=== PATIENT | male | born 1960 | race American Indian/Alaskan Native ===

== ENCOUNTER 2018-08-21 23:49 | Observation (INO) | payer MEDICARE ==
[2018-08-22] MEDS ORDERED: ASPIRIN PO ONE (00:04)
[2018-08-22] MEDS ORDERED: CATAPRES ONE (00:12)
[2018-08-22] MEDS ORDERED: CATAPRES PO ONE (00:20)
[2018-08-22 00:27] LABS: Basophils % (Auto) 0.5 % (0.0-1.8); Eosinophils # (Auto) 0.1 K/mm3 (0.0-0.4); Eosinophils % (Auto) 1.3 % (0.0-4.3); Hematocrit 41.5 % (35.5-45.6); Hemoglobin 13.9 gm/dl (11.8-15.2); Lymphocytes # (Auto) 1.2 K/mm3 (1.2-5.4); Lymphocytes % (Auto) 17.3 % (13.4-35.0); Mean Corpuscular HGB Conc 34 % (32-34); Mean Corpuscular Volume 86 fl (84-94); Monocytes # (Auto) 0.6 K/mm3 (0.0-0.8); Monocytes % (Auto) 9.2 % (0.0-7.3); Platelet Count 188 K/mm3 (140-440); Red Blood Count 4.83 M/mm3 (3.65-5.03); Red Cell Distribution Width 13.8 % (13.2-15.2)
[2018-08-22] MEDS ORDERED: MORPHINE IV ONE (00:33)
--- NOTE | 2018-08-22 00:35 | XRay Report ---
PROCEDURE: XR CHEST 1V AP TECHNIQUE: Chest radiograph single view. HISTORY: Chest Pain COMPARISONS: None . FINDINGS: Heart: Normal. Mediastinum/Vessels: Normal. Lungs/Pleural space: Normal. Bony thorax: No acute osseous abnormality. Life support devices: None. IMPRESSION: No acute cardiopulmonary abnormality. This document is electronically signed by Torsten Martinez MD., August 22 2018 12:33:27 AM ET
--- NOTE | 2018-08-22 00:35 | Emergency Department Report ---
ED Chest Pain HPI - General Chief Complaint: Chest Pain Stated Complaint: CHEST PAIN Time Seen by Provider: 08/22/18 00:31 Source: patient Mode of arrival: Ambulatory Limitations: No Limitations - History of Present Illness Initial Comments: Patient is a 57-year-old male that presents to emergency room with complaints of chest pain. Patient states chest pain is the left side and nonradiating. Patient states it started approximately one hour ago. Patient is states he is having shortness of breath as well. Patient also complaining of nausea. The patient denies vomiting and fever chills. Patient denies diaphoresis. Patient states his chest pain is a 10 out of 10 and is worse with exertion and better with rest. Patient states shortness of breath better with rest and worse with exertion. Patient states he stopped taking his blood pressure medications 2 weeks ago. MD Complaint: chest pain -: Sudden Onset: during rest Severity: severe Severity scale (0 -10): 10 Quality: sharp Consistency: constant Improves With: rest Worsens With: exertion re: nausea, dyspnea. denies: vomting, diaphoresis, sense of impending doom Other Symptoms: denies: cough, fever, syncope, rash, acid taste in mouth, leg swelling, palpitations, burping Treatments Prior to Arrival: none Aspirin use within the Past 7 Days: (0) No - Related Data On Oral Contraceptives: No Home Medications Medication Instructions Recorded Confirmed Last Taken Metoprolol [Lopressor] 25 mg PO BID 03/28/15 03/28/15 Unknown Previous Rx's Medication Instructions Recorded Last Taken Type Amoxicillin/K Clav Tab [Augmentin 1 each PO Q12HR #20 tablet 03/30/15 Unknown Rx 875MG TAB] Lisinopril [Zestril TAB] 20 mg PO BID #60 tablet 03/30/15 Unknown Rx Metoprolol [Lopressor TAB] 50 mg PO BID #60 tablet 03/30/15 Unknown Rx Sod Chloride/Aloe Vera [[place] Sal[place]] 1 applic NS BID #1 bottle 03/30/15 Unknown Rx Zinc Oxide 7 applic TP QHS #1 tube 03/30/15 Unknown Rx amLODIPine [Norvasc] 10 mg PO DAILY #30 tablet 03/30/15 Unknown Rx hydrALAZINE [Apresoline TAB] 25 mg PO Q8HR #90 tablet 03/30/15 Unknown Rx hydrALAZINE [Apresoline TAB] 50 mg PO Q8HR #90 tablet 03/31/15 Unknown Rx Allergies Allergy/AdvReac Type Severity Reaction Status Date / Time No Known Allergies Allergy Verified 04/08/13 09:28 Heart Score - HEART Score History: Moderately suspicious EKG: Non-specific Age: 45-65 Risk factors: > 3 risk factors or hx of atherosclerotic disease Troponin: < normal limit HEART Score: 5 ED Review of Systems ROS: Stated complaint: CHEST PAIN Other details as noted in HPI Constitutional: denies: chills, fever Eyes: denies: eye pain, eye discharge, vision change ENT: denies: ear pain, throat pain Respiratory: shortness of breath. denies: cough, wheezing Cardiovascular: chest pain, dyspnea on exertion. denies: palpitations Endocrine: no symptoms reported Gastrointestinal: nausea. 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) Hx Congestive Heart Failure: No Hx Diabetes: No Hx Psychiatric Treatment: No Hx Asthma: No Hx COPD: No Hx HIV: No Additional medical history: chronic back pain - Surgical History Past Surgical History?: Yes Hx Internal Defibrillator: No Hx Appendectomy: Yes - Family History Family history: hypertension - Social History Smoking Status: Never Smoker Substance Use Type: Alcohol - Medications Home Medications: Home Medications Medication Instructions Recorded Confirmed Last Taken Type Metoprolol [Lopressor] 25 mg PO BID 03/28/15 03/28/15 Unknown History Amoxicillin/K Clav Tab [Augmentin 1 each PO Q12HR #20 tablet 03/30/15 Unknown Rx 875MG TAB] Lisinopril [Zestril TAB] 20 mg PO BID #60 tablet 03/30/15 Unknown Rx Metoprolol [Lopressor TAB] 50 mg PO BID #60 tablet 03/30/15 Unknown Rx Sod Chloride/Aloe Vera [[place] Sal[place]] 1 applic NS BID #1 bottle 03/30/15 Unknown Rx Zinc Oxide 7 applic TP QHS #1 tube 03/30/15 Unknown Rx amLODIPine [Norvasc] 10 mg PO DAILY #30 tablet 03/30/15 Unknown Rx hydrALAZINE [Apresoline TAB] 25 mg PO Q8HR #90 tablet 03/30/15 Unknown Rx hydrALAZINE [Apresoline TAB] 50 mg PO Q8HR #90 tablet 03/31/15 Unknown Rx ED Physical Exam - General Limitations: No Limitations General appearance: alert, in no apparent distress - Head Head exam: Present: atraumatic, normocephalic - Eye Eye exam: Present: normal appearance - ENT ENT exam: Present: mucous membranes moist - Neck Neck exam: Present: normal inspection - Respiratory Respiratory exam: Present: normal lung sounds bilaterally. Absent: respiratory distress - Cardiovascular Cardiovascular Exam: Present: regular rate, normal rhythm. Absent: systolic murmur, diastolic murmur, rubs, gallop - GI/Abdominal GI/Abdominal exam: Present: soft, normal bowel sounds - Rectal Rectal exam: Present: deferred - Extremities Exam Extremities exam: Present: normal inspection - Back Exam Back exam: Present: normal inspection - Neurological Exam Neurological exam: Present: alert, oriented X3 - Psychiatric Psychiatric exam: Present: normal affect, normal mood - Skin Skin exam: Present: warm, dry, intact, normal color. Absent: rash ED Course Vital Signs 08/21/18 08/22/18 08/22/18 23:50 00:00 00:25 Temperature 98.1 F Pulse Rate 77 81 Respiratory 18 20 Rate Blood Pressure 185/120 185/120 O2 Sat by Pulse 99 Oximetry 08/22/18 08/22/18 08/22/18 00:28 00:30 00:45 Temperature Pulse Rate 79 79 Respiratory 20 18 Rate Blood Pressure 186/115 O2 Sat by Pulse 98 98 100 Oximetry 08/22/18 01:00 Temperature Pulse Rate 73 Respiratory 24 Rate Blood Pressure O2 Sat by Pulse 100 Oximetry - Reevaluation(s) Reevaluation #1: Initial evaluation done. Patient will be given morphine and aspirin. Patient was given clonidine. Patient still having elevated blood pressure. We will continue to monitor. 08/22/18 00:43 Patient still having elevated blood pressure and patient was given another round of medications. 08/22/18 01:03 Patient states this chest pain is improving however the blood pressure still elevated at 195/122. Patient will be given 5 mg of Lopressor. 08/22/18 01:42 Reevaluation #2: Discussed all results with patient. Patient will be admitted to the hospitalist service. Patient agrees to plan of care. After Lopressor given, the blood pressure came to 170/99. 08/22/18 01:54 - Consultations Consultation #1: Hospitalist consulted for admission. Hospitalist to admit patient. Hospitalist to assume care patient. 08/22/18 01:54 CASSIE score - Cassie Score Age > 65: (0) No Aspirin use within the Past 7 Days: (0) No 3 or more CAD Risk Factors: (1) Yes 2 or more Angina events in past 24 hrs: (0) No Known CAD with more than 50% Stenosis: (0) No Elevated Cardiac Markers: (0) No ST Deviation Greater than 0.5mm: (0) No CASSIE Score: 1 ED Medical Decision Making - Lab Data Result diagrams: 08/22/18 00:08 08/22/18 00:08 - EKG Data -: EKG Interpreted by Me EKG shows normal: sinus rhythm, intervals, ST-T waves Rate: normal - EKG Data Interpretation: other (right bundle-branch block. Left axis deviation) - Radiology Data Radiology results: report reviewed, image reviewed interpreted by me: No acute finding on chest x-ray. - Medical Decision Making Patient is a 57-year-old male that presents emergency room with chest pain, shortness of breath and resistant hypertension. Patient recently stopped taking his blood pressure medications. Patient's blood pressure difficult to control and improved. Patient given multiple medications. Patient's labs unremarkable. Patient's cardiac workup so far negative. Patient was admitted to the hospital service. - Differential Diagnosis chest pain. ACS. Shortness of breath. Hypertension Critical Care Time: Yes Critical care attestation.: If time is entered above; I have spent that time in minutes in the direct care of this critically ill patient, excluding procedure time. Critical Care Time: 35 minutes ED Disposition Clinical Impression: Hypertension, uncontrolled, Malignant hypertension, SOB (shortness of breath), Noncompliance Chest pain Qualifiers: Chest pain type: unspecified Qualified Code(s): R07.9 - Chest pain, unspecified Disposition: OP ADMIT IP TO THIS HOSP Is pt being admited?: Yes Does the pt Need Aspirin: No Condition: Critical Time of Disposition: 01:54
[2018-08-22] MEDS ORDERED: APRESOLINE IV ONE (01:19)
[2018-08-22 01:40] LABS: BUN/Creatinine Ratio 15; Blood Urea Nitrogen 16 mg/dL (9-20); Calcium 9.8 mg/dL (8.4-10.2); Hemolysis Index 12
[2018-08-22] MEDS ORDERED: LOPRESSOR IV ONE (01:42)
[2018-08-22] MEDS ORDERED: ZOFRAN IV PRN (01:59)
[2018-08-22] MEDS ORDERED: PROVENTIL IH PRN (01:59)
[2018-08-22] MEDS ORDERED: TYLENOL PO PRN (01:59)
[2018-08-22] MEDS ORDERED: SODIUM CHLORIDE FLUSH SYRINGE 10 ML IV PRN ×2 (01:59→02:03)
[2018-08-22] MEDS ORDERED: MORPHINE IV PRN (01:59)
[2018-08-22] MEDS ORDERED: NITROSTAT SL PRN (02:03)
[2018-08-22] MEDS ORDERED: APRESOLINE IV PRN (02:06)
--- NOTE | 2018-08-22 02:50 | History and Physical Report ---
<NOEL MAGALLANES - Last Filed: 08/22/18 03:04> History of Present Illness Date of examination: 08/22/18 Date of admission: 08/22/2018 Chief complaint: Chest pain History of present illness: 57-year-old -[place] male with history of CVAx 2 (2001 with left sided weakness, and 01/2008 with right sised weakness) and hypertension who presents to [facility] ED with complaints of left-sided chest pain. He states that around 11 PM last night he started experience left-sided chest pain. The pain is nonradiating. He describes pain as pressure and rates it 10/10. There are no aggravating factors and it has relieved with pain medicine. Patient admits to being noncompliant with antihypertensive medication. He states that he has not taken his blood pressure medicine since moving back to [place] from [place] 2 months ago. 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 He is advised to follow-up in 4 months but admits to not doing so. Denies vomiting, cough, hemoptysis, visual disturbances, gait abnormalities, fever, recent sick contact Past History Past Medical History: hypertension, stroke (2001, w residual L/-sided weakness; 01/2018 w R sided weakness, chronic back pain), other (cancer of Lt groin lymph node s/p chemotherapy, radiation) Past Surgical History: Other (removal lymph node in lt groin) Social history: (but ), lives with family (with her brother), other (social drinker) Family history: no significant family history Medications and Allergies Allergies Allergy/AdvReac Type Severity Reaction Status Date / Time No Known Allergies Allergy Verified 04/08/13 09:28 Home Medications Medication Instructions Recorded Confirmed Last Taken Type Aspirin [Aspirin BABY CHEW TAB] 81 mg PO QDAY #30 tab.chew 08/23/18 Unknown Rx AtorvaSTATin [Lipitor] 40 mg PO QHS #30 tablet 08/23/18 Unknown Rx Lisinopril [Zestril TAB] 40 mg PO DAILY #60 tablet 08/23/18 Unknown Rx Metoprolol [Lopressor TAB] 50 mg PO BID #60 tablet 08/23/18 Unknown Rx amLODIPine [Norvasc] 10 mg PO DAILY #30 tablet 08/23/18 Unknown Rx hydrALAZINE [Apresoline TAB] 50 mg PO Q8HR #90 tablet 08/23/18 Unknown Rx Active Meds: Active Medications Acetaminophen (Tylenol) 650 mg PO Q4H PRN PRN Reason: Pain MILD(1-3)/Fever >100.5/ZAMORA Albuterol (Proventil) 2.5 mg IH Q4HRT PRN PRN Reason: Shortness Of Breath Amlodipine Besylate (Norvasc) 10 mg PO DAILY YARI Aspirin (Baby Aspirin) 81 mg PO QDAY YARI Atorvastatin Calcium (Lipitor) 40 mg PO QHS YARI Enoxaparin Sodium (Lovenox) 40 mg SUB-Q QDAY YARI Hydralazine HCl (Apresoline) 10 mg IV Q4HR PRN PRN Reason: Blood Pressure Hydralazine HCl (Apresoline) 25 mg PO Q8HR YARI Lisinopril (Zestril) 20 mg PO BID YARI Morphine Sulfate (Morphine) 2 mg IV Q4H PRN PRN Reason: Pain, Moderate (4-6) Stop: 08/23/18 23:59 Nitroglycerin (Nitrostat) 0.4 mg SL Q5M PRN PRN Reason: Chest Pain Ondansetron HCl (Zofran) 4 mg IV Q8H PRN PRN Reason: Nausea And Vomiting Sodium Chloride (Sodium Chloride Flush Syringe 10 Ml) 10 ml IV BID YARI Sodium Chloride (Sodium Chloride Flush Syringe 10 Ml) 10 ml IV PRN PRN PRN Reason: LINE FLUSH Review of Systems All systems: negative (reviewed in no additional remarkable complaints except as noted below) Cardiovascular: chest pain, shortness of breath, dyspnea on exertion Respiratory: shortness of breath, dyspnea on exertion Gastrointestinal: nausea Neurological: headaches (mild headache accompanied with chest pain) Exam - Physical Exam Narrative exam: Physical exam General appearance: Present: No acute distress, pleasant, middle age until mail - EENT Eyes: Present: PERRL, EOM intact ENT: hearing intact, normal dentition - Neck Neck: Present: supple, normal ROM - Respiratory Respiratory effort: Non-labored Respiratory: Clear throughout - Cardiovascular Heart rate: 77 (bpm) Rhythm: Right bundle-branch block, left axis deviation Heart Sounds: Present: S1 & S2. Absent: rub, click - Extremities Extremities: no ischemia, pulses intact, - Peripheral Assessment Peripheral Pulses: within normal limits - Abdominal General gastrointestinal: soft, non-tender, normal bowel sounds - Integumentary Integumentary: Present: warm, dry - Musculoskeletal Musculoskeletal: Able to move all extremities - Psychiatric Psychiatric: Appropriate for situation, cooperative - Constitutional Vitals: Temp Pulse Resp BP Pulse Ox 98.1 F 77 21 163/96 99 08/22/18 00:00 08/22/18 02:00 08/22/18 02:00 08/22/18 02:00 08/22/18 02:00 Results - Labs CBC & Chem 7: 08/22/18 00:08 08/22/18 00:08 Labs: Laboratory Last Values WBC 6.8 K/mm3 (4.5-11.0) 08/22/18 00:08 RBC 4.83 M/mm3 (3.65-5.03) 08/22/18 00:08 Hgb 13.9 gm/dl (11.8-15.2) 08/22/18 00:08 Hct 41.5 % (35.5-45.6) 08/22/18 00:08 MCV 86 fl (84-94) 08/22/18 00:08 MCH 29 pg (28-32) 08/22/18 00:08 MCHC 34 % (32-34) 08/22/18 00:08 RDW 13.8 % (13.2-15.2) 08/22/18 00:08 Plt Count 188 K/mm3 (140-440) 08/22/18 00:08 Lymph % (Auto) 17.3 % (13.4-35.0) 08/22/18 00:08 [place] % (Auto) 9.2 % (0.0-7.3) H 08/22/18 00:08 Eos % (Auto) 1.3 % (0.0-4.3) 08/22/18 00:08 Baso % (Auto) 0.5 % (0.0-1.8) 08/22/18 00:08 Lymph # 1.2 K/mm3 (1.2-5.4) 08/22/18 00:08 [place] # 0.6 K/mm3 (0.0-0.8) 08/22/18 00:08 Eos # 0.1 K/mm3 (0.0-0.4) 08/22/18 00:08 Baso # 0.0 K/mm3 (0.0-0.1) 08/22/18 00:08 Seg Neutrophils % 71.7 % (40.0-70.0) H 08/22/18 00:08 Seg Neutrophils # 4.9 K/mm3 (1.8-7.7) 08/22/18 00:08 Sodium 140 mmol/L (137-145) 08/22/18 00:08 Potassium 4.3 mmol/L (3.6-5.0) 08/22/18 00:08 Chloride 99.9 mmol/L (98-107) 08/22/18 00:08 Carbon Dioxide 28 mmol/L (22-30) 08/22/18 00:08 16 mmol/L 08/22/18 00:08 BUN 16 mg/dL (9-20) 08/22/18 00:08 1.1 mg/dL (0.8-1.5) 08/22/18 00:08 Estimated GFR > 60 ml/min 08/22/18 00:08 15 % 08/22/18 00:08 Glucose 130 mg/dL (75-100) H 08/22/18 00:08 Calcium 9.8 mg/dL (8.4-10.2) 08/22/18 00:08 < 0.010 ng/mL (0.00-0.029) 08/22/18 00:08 NT-Pro-B Natriuret Pep 57.80 pg/mL (0-900) 08/22/18 00:08 Short CBC 08/22/18 Range/Units 00:08 WBC 6.8 (4.5-11.0) K/mm3 Hgb 13.9 (11.8-15.2) gm/dl Hct 41.5 (35.5-45.6) % Plt Count 188 (140-440) K/mm3 BMP 08/22/18 00:08 Sodium 140 Potassium 4.3 Chloride 99.9 Carbon Dioxide 28 BUN 16 Creatinine 1.1 Glucose 130 H Calcium 9.8 Cardiac Enzymes 08/22/18 Range/Units 00:08 Troponin T < 0.010 (0.00-0.029) ng/mL - Imaging and Cardiology EKG: image reviewed (77 bpm, right complaint fall, left axis deviation) Chest x-ray: report reviewed ( No acute cardiopulmonary abnormality), image reviewed Assessment and Plan Assessment and plan: 57-year-old -[place] male with history of CVAx 2 (2001 with left sided weakness, and 01/2008 with right sised weakness) and hypertension noncompliant with antihypertensive medication who presents to [facility] ED with complaints of left-sided chest pain. He is going to be in hypertensive urgency with blood pressure 197/122. Troponin negative 1. CXR unremarkable. Will admit as OBS to Telemetry unit for further evaluation. Acute chest pain R/O ACS Hypertensive emergency HTN Hx of CA in Left groin lymph node Plan: Continue supportive care Continuous telemetry monitoring Monitor BP Resume Norvasc 10 mg daily, hydralazine 20 mg daily, lisinopril 20 mg twice a day IV hydralazine when necessary ASA 81mg, Lipitor 40 mg daily at bedtime Cardiology consult Nothing by mouth Lexiscan and echo pending Repeat troponin pending DVT PPX on Lovenox and SCD This pt has been seen in conjunction with Dr. Taylor. Advance Directives: No VTE prophylaxis?: Chemical Plan of care discussed with patient/family: Yes <JG TAYLOR E - Last Filed: 08/23/18 22:55> History of Present Illness Date of admission: 08/22/18 01:59 Medications and Allergies Active Meds: Active Medications Acetaminophen (Tylenol) 650 mg PO Q4H PRN PRN Reason: Pain MILD(1-3)/Fever >100.5/ZAMORA Albuterol (Proventil) 2.5 mg IH Q4HRT PRN PRN Reason: Shortness Of Breath Amlodipine Besylate (Norvasc) 10 mg PO DAILY [facility] Aspirin (Baby Aspirin) 81 mg PO QDAY [facility] Atorvastatin Calcium (Lipitor) 40 mg PO QHS [facility] Enoxaparin Sodium (Lovenox) 40 mg SUB-Q QDAY [facility] Hydralazine HCl (Apresoline) 10 mg IV Q4HR PRN PRN Reason: Blood Pressure Hydralazine HCl (Apresoline) 25 mg PO Q8HR [facility] Lisinopril (Zestril) 20 mg PO BID [facility] Last Admin: 08/22/18 03:02 Dose: 20 mg Documented by: Morphine Sulfate (Morphine) 2 mg IV Q4H PRN PRN Reason: Pain, Moderate (4-6) Stop: 08/23/18 23:59 Nitroglycerin (Nitrostat) 0.4 mg SL Q5M PRN PRN Reason: Chest Pain Ondansetron HCl (Zofran) 4 mg IV Q8H PRN PRN Reason: Nausea And Vomiting Sodium Chloride (Sodium Chloride Flush Syringe 10 Ml) 10 ml IV BID YARI Sodium Chloride (Sodium Chloride Flush Syringe 10 Ml) 10 ml IV PRN PRN PRN Reason: LINE FLUSH Exam - Constitutional Vitals: Temp Pulse Resp BP Pulse Ox 98.4 F 75 18 160/100 99 08/22/18 05:02 08/22/18 05:02 08/22/18 05:02 08/22/18 05:02 08/22/18 05:02 Results - Labs CBC & Chem 7: 08/23/18 04:02 08/23/18 04:02 Labs: Laboratory Last Values WBC 6.8 K/mm3 (4.5-11.0) 08/22/18 00:08 RBC 4.83 M/mm3 (3.65-5.03) 08/22/18 00:08 Hgb 13.9 gm/dl (11.8-15.2) 08/22/18 00:08 Hct 41.5 % (35.5-45.6) 08/22/18 00:08 MCV 86 fl (84-94) 08/22/18 00:08 MCH 29 pg (28-32) 08/22/18 00:08 MCHC 34 % (32-34) 08/22/18 00:08 RDW 13.8 % (13.2-15.2) 08/22/18 00:08 Plt Count 188 K/mm3 (140-440) 08/22/18 00:08 Lymph % (Auto) 17.3 % (13.4-35.0) 08/22/18 00:08 [place] % (Auto) 9.2 % (0.0-7.3) H 08/22/18 00:08 Eos % (Auto) 1.3 % (0.0-4.3) 08/22/18 00:08 Baso % (Auto) 0.5 % (0.0-1.8) 08/22/18 00:08 Lymph # 1.2 K/mm3 (1.2-5.4) 08/22/18 00:08 [place] # 0.6 K/mm3 (0.0-0.8) 08/22/18 00:08 Eos # 0.1 K/mm3 (0.0-0.4) 08/22/18 00:08 Baso # 0.0 K/mm3 (0.0-0.1) 08/22/18 00:08 Seg Neutrophils % 71.7 % (40.0-70.0) H 08/22/18 00:08 Seg Neutrophils # 4.9 K/mm3 (1.8-7.7) 08/22/18 00:08 Sodium 140 mmol/L (137-145) 08/22/18 00:08 Potassium 4.3 mmol/L (3.6-5.0) 08/22/18 00:08 Chloride 99.9 mmol/L (98-107) 08/22/18 00:08 Carbon Dioxide 28 mmol/L (22-30) 08/22/18 00:08 16 mmol/L 08/22/18 00:08 BUN 16 mg/dL (9-20) 08/22/18 00:08 1.1 mg/dL (0.8-1.5) 08/22/18 00:08 Estimated GFR > 60 ml/min 08/22/18 00:08 15 % 08/22/18 00:08 Glucose 130 mg/dL (75-100) H 08/22/18 00:08 5.4 % (4-6) 08/22/18 02:47 Calcium 9.8 mg/dL (8.4-10.2) 08/22/18 00:08 < 0.010 ng/mL (0.00-0.029) 08/22/18 02:47 NT-Pro-B Natriuret Pep 57.80 pg/mL (0-900) 08/22/18 00:08 Triglycerides 77 mg/dL (2-149) 08/22/18 02:47 Cholesterol 255 mg/dL (50-199) H 08/22/18 02:47 181 mg/dL (50-130) H 08/22/18 02:47 82 mg/dL (40-59) H 08/22/18 02:47 3.10 % 08/22/18 02:47 Assessment and Plan Assessment and plan: 57-year-old man with history of hypertension, noncompliant with medications, CVA, cancer of left groin lymph node come to the emergency room with chest pain that tarted yesterday, sharp, constant, associated with nausea and shortness of breath. Physical exam benign, Agree with plan as discussed above.Patient seen, discussed with [employer] INVESTIGATOR.
[2018-08-22] MEDS ORDERED: ZESTRIL PO SCH (03:00)
[2018-08-22 03:42] LABS: Chol/HDL Ratio 3.1 %
[2018-08-22] MEDS ORDERED: APRESOLINE PO SCH (06:00)
[2018-08-22] MEDS ORDERED: LEXISCAN IV ONE (08:48)
--- NOTE | 2018-08-22 10:16 | Consultation ---
History of Present Illness Consult date: 08/22/18 Consult reason: chest pain History of present illness: He claims that last night, he developed intermittent, sharp, substernal chest pain with no radiation. It was associated with shortness of breath. So far, he has ruled out for acute myocardial infarction with negative cardiac enzymes. His BP was significantly elevated at presentation. 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 denies: alcohol abuse Family history: CAD Medications and Allergies Allergies Allergy/AdvReac Type Severity Reaction Status Date / Time No Known Allergies Allergy Verified 04/08/13 09:28 Home Medications Medication Instructions Recorded Confirmed Last Taken Type Lisinopril [Zestril TAB] 20 mg PO BID #60 tablet 03/30/15 08/22/18 Unknown Rx Metoprolol [Lopressor TAB] 50 mg PO BID #60 tablet 03/30/15 08/22/18 Unknown Rx amLODIPine [Norvasc] 10 mg PO DAILY #30 tablet 03/30/15 08/22/18 Unknown Rx hydrALAZINE [Apresoline TAB] 50 mg PO Q8HR #90 tablet 03/31/15 08/22/18 Unknown Rx Active Meds: Active Medications Acetaminophen (Tylenol) 650 mg PO Q4H PRN PRN Reason: Pain MILD(1-3)/Fever >100.5/ZAMORA Albuterol (Proventil) 2.5 mg IH Q4HRT PRN PRN Reason: Shortness Of Breath Amlodipine Besylate (Norvasc) 10 mg PO DAILY [facility] Aspirin (Baby Aspirin) 81 mg PO QDAY YARI Atorvastatin Calcium (Lipitor) 40 mg PO QHS [facility] Enoxaparin Sodium (Lovenox) 40 mg SUB-Q QDAY YARI Hydralazine HCl (Apresoline) 10 mg IV Q4HR PRN PRN Reason: Blood Pressure Last Admin: 08/22/18 06:57 Dose: 10 mg Documented by: Lisinopril (Zestril) 40 mg PO DAILY [facility] Metoprolol Tartrate (Lopressor) 50 mg PO BID [facility] Morphine Sulfate (Morphine) 2 mg IV Q4H PRN PRN Reason: Pain, Moderate (4-6) Stop: 08/23/18 23:59 Nitroglycerin (Nitrostat) 0.4 mg SL Q5M PRN PRN Reason: Chest Pain Ondansetron HCl (Zofran) 4 mg IV Q8H PRN PRN Reason: Nausea And Vomiting Sodium Chloride (Sodium Chloride Flush Syringe 10 Ml) 10 ml IV BID YARI Sodium Chloride (Sodium Chloride Flush Syringe 10 Ml) 10 ml IV PRN PRN PRN Reason: LINE FLUSH Review of Systems Constitutional: no fever, no chills Ears, nose, mouth and throat: no ear pain, no ear discharge, no sore throat Cardiovascular: chest pain, shortness of breath, no orthopnea, no palpitations, no lightheadedness Respiratory: no cough, no hemoptysis Gastrointestinal: no abdominal pain, no nausea, no vomiting, no diarrhea, no constipation Genitourinary Male: no dysuria, no urinary frequency Rectal: no pain, no bleeding Musculoskeletal: no neck stiffness, no neck pain, no muscle weakness, no myalgias Integumentary: no rash, no pruritis Neurological: no parathesias, no numbness, no headaches Endocrine: no cold intolerance, no heat intolerance Hematologic/Lymphatic: no easy bruising, no easy bleeding Allergic/Immunologic: no urticaria, no wheezing Physical Examination Vital Signs Last Vital Signs Temp 98.1 F 08/22/18 07:58 Pulse 75 08/22/18 06:57 Resp 18 08/22/18 07:58 BP 131/76 08/22/18 08:58 Pulse Ox 99 08/22/18 05:02 General appearance: no acute distress HEENT: Positive: EOMI, Normocephaly, Mucus Membranes Moist Neck: Positive: neck supple, trachea midline Cardiac: Positive: Reg Rate and Rhythm, S1/S2 Lungs: Positive: clear to auscultation Neuro: Positive: Grossly Intact Abdomen: Positive: Soft, Active Bowel Sounds Skin: Positive: Clear. Negative: Rash Musculoskeletal: Normal Range of Motion Extremities: Present: normal. Absent: edema Results 08/22/18 00:08 08/22/18 00:08 Lipids 08/22/18 Range/Units 02:47 Triglycerides 77 (2-149) mg/dL Cholesterol 255 H (50-199) mg/dL HDL Cholesterol 82 H (40-59) mg/dL Cholesterol/HDL Ratio 3.10 % CBC 08/22/18 Range/Units 00:08 WBC 6.8 (4.5-11.0) K/mm3 RBC 4.83 (3.65-5.03) M/mm3 Hgb 13.9 (11.8-15.2) gm/dl Hct 41.5 (35.5-45.6) % Plt Count 188 (140-440) K/mm3 Lymph # 1.2 (1.2-5.4) K/mm3 Bee # 0.6 (0.0-0.8) K/mm3 Eos # 0.1 (0.0-0.4) K/mm3 Baso # 0.0 (0.0-0.1) K/mm3 Comprehensive Metabolic Panel 08/22/18 Range/Units 00:08 Sodium 140 (137-145) mmol/L Potassium 4.3 (3.6-5.0) mmol/L Chloride 99.9 (98-107) mmol/L Carbon Dioxide 28 (22-30) mmol/L BUN 16 (9-20) mg/dL Creatinine 1.1 (0.8-1.5) mg/dL Glucose 130 H (75-100) mg/dL Calcium 9.8 (8.4-10.2) mg/dL - Imaging and Cardiology EKG: image reviewed EKG interpretations - Telemetry EKG Rhythm: Sinus Rhythm - EKG Sinus rhythms and dysrhythmias: sinus rhythm AV and intraventricular conduction: left anterior fascicular Assessment and Plan Optimize antihypertensive regimen. Lipid-lowering medication. Lexiscan stress myocardial perfusion imaging. Obtain echocardiogram. Further recommendations after reviewing stress test findings. - Patient Problems (1) Chest pain Current Visit: Yes Status: Acute Qualifiers: Chest pain type: unspecified Qualified Code(s): R07.9 - Chest pain, unspecified (2) Uncontrolled hypertension Current Visit: Yes Status: Chronic (3) Abnormal ECG Current Visit: Yes Status: Acute (4) HLD (hyperlipidemia) Current Visit: Yes Status: Acute Qualifiers: Hyperlipidemia type: pure hypercholesterolemia Qualified Code(s): E78.00 - Pure hypercholesterolemia, unspecified; E78.0 - Pure hypercholesterolemia (5) H/O lymphoma Current Visit: Yes Status: Chronic
[2018-08-22] MEDS: LOVENOX SUB-Q SCH (11:02)
[2018-08-22] MEDS: LOPRESSOR PO SCH ×2 (11:03→21:12)
[2018-08-22] MEDS: ZESTRIL PO SCH (11:03)
[2018-08-22] MEDS: NORVASC PO SCH (11:03)
[2018-08-22] MEDS: SODIUM CHLORIDE FLUSH SYRINGE 10 ML IV SCH ×2 (11:05→21:13)
--- NOTE | 2018-08-22 15:08 | Event Note ---
Date: 08/22/18 Patient was admitted earlier this morning for the management of hypertensive urgency and chest pain. Stress test was done and normal recommended medical management. Echo is pending. Blood pressure is controlled. Continue management as outlined in H&P.
--- NOTE | 2018-08-22 18:09 | Treadmill Report ---
LEXISCAN STRESS TEST REPORT REASON FOR STUDY: Chest pain. STRESS TEST PROTOCOL: The patient received 0.4 mg of Lexiscan intravenously over 10 seconds. Technetium-99m tetrofosmin was subsequently injected. Baseline ECG, normal sinus rhythm with right bundle branch block. T-wave abnormality. Consider inferior ischemia. Lexiscan ECG, no significant change from baseline. No chest pain. No arrhythmias. IMPRESSION: Nondiagnostic due to baseline ECG abnormalities. Nuclear imaging report to follow. JOB# [id number] AGO/NTS
--- NOTE | 2018-08-23 04:26 | Treadmill Report ---
THALLIUM REPORT REASON FOR STUDY: Chest pain. IMAGING PROTOCOL: The patient received 9.88 mCi of technetium-99m for rest imaging, and 31.21 mCi of technetium-99m Tetrofosmin for stress imaging. Imaging for all procedures was completed 30-90 minutes following the initial injection of Technetium 99m Tetrofosmin. SPECT imaging in the 180 degree arc was performed in the right anterior oblique projection. Computerized reconstruction of the images was performed for analysis. NUCLEAR IMAGING RESULTS: Normal left ventricular cavity size with no change from stress to rest. Distribution of radionuclide within the left ventricle revealed a medium-sized area of photon reduction involving the inferior wall. The degree of photo-induction is moderate. Rest imaging showed a mild improvement in this defect. Gated SPECT imaging revealed normal global LV systolic function with moderate septal hypokinesis. The calculated left ventricular ejection fraction is 56%. IMPRESSION: Medium size, partially reversible inferior defect. Normal global LV systolic function with moderate septal hypokinesis. EF 56%. These findings suggest prior infarction with mild residual ischemia in the right coronary artery territory. [facility]# [id number] YESI/IRMA DELONG
[2018-08-23 06:37] LABS: Basophils % (Auto) 0.7 % (0.0-1.8); Eosinophils # (Auto) 0.1 K/mm3 (0.0-0.4); Eosinophils % (Auto) 2.7 % (0.0-4.3); Hematocrit 39.5 % (35.5-45.6); Hemoglobin 12.9 gm/dl (11.8-15.2); Lymphocytes # (Auto) 0.8 K/mm3 (1.2-5.4); Lymphocytes % (Auto) 17.6 % (13.4-35.0); Mean Corpuscular HGB Conc 33 % (32-34); Mean Corpuscular Volume 87 fl (84-94); Monocytes # (Auto) 0.6 K/mm3 (0.0-0.8); Monocytes % (Auto) 12.2 % (0.0-7.3); Platelet Count 166 K/mm3 (140-440); Red Blood Count 4.55 M/mm3 (3.65-5.03); Red Cell Distribution Width 13.8 % (13.2-15.2)
[2018-08-23 07:14] LABS: BUN/Creatinine Ratio 15; Blood Urea Nitrogen 16 mg/dL (9-20); Calcium 8.9 mg/dL (8.4-10.2); Hemolysis Index 4
--- NOTE | 2018-08-23 08:13 | Discharge Summary ---
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 He states that around 11 PM last night he started experience left-sided chest pain. The pain is nonradia ting. He describes pain as pressure and rates it 10/10. There are no aggravating factors and it has relieved with pain medicine. Patient admits to being noncompliant with antihypertensive medication. He states that he has not taken his blood pressure medicine since moving back to [place] from [place] 2 months ago. 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 He is advised to follow-up in 4 months but admits to not doing so. Patient is admitted to the floor and he was started with antihypertensives and blood pressure was controlled. Patient had stress test yesterday and showed medium sized partially reversible inferior defect and per cardiology it suggests previous infarction and recommended medical management. Echo was done ejection fraction 50-55%. Patient chest pain resolved, blood pressure controlled, hemodynamically stable and we will discharge him with appropriate home medications. Patient has hyperlipidemia and will put him on statin. Disposition: - TO HOME OR SELFCARE Time spent for discharge: 32 minutes - Discharge Diagnoses (1) Abnormal ECG Status: Acute (2) Accelerated hypertension Status: Acute (3) Chest pain Status: Acute Qualifiers: Chest pain type: unspecified Qualified Code(s): R07.9 - Chest pain, unspecified (4) HLD (hyperlipidemia) Status: Acute Qualifiers: Hyperlipidemia type: pure hypercholesterolemia Qualified Code(s): E78.00 - Pure hypercholesterolemia, unspecified; E78.0 - Pure hypercholesterolemia (5) Noncompliance Status: Acute (6) SOB (shortness of breath) Status: Acute (7) H/O lymphoma Status: Chronic Core Measure Documentation - Palliative Care Palliative Care/ Comfort Measures: Not Applicable - Core Measures Any of the following diagnoses?: none Exam - Physical Exam Narrative exam: Not in cardiopulmonary distress. The patient is obese. Vital signs as documented. Head exam is unremarkable. No scleral icterus . Neck is without jugular venous distension, thyromegaly, or carotid bruits. Lungs are clear to auscultation. Cardiac exam reveals regular rate and Rhythm. First and second heart sounds normal. No murmurs, rubs or gallops. Abdominal exam reveals normal bowel sounds, no masses, no organomegaly and no aortic enlargement. Extremities are nonedematous and both femoral and pedal pulses are normal. STOCKBROKER: Alert and oriented 3. No focal weakness. - Constitutional Vitals: Temp Pulse Resp BP Pulse Ox 98.0 F 67 18 163/105 94 08/23/18 07:26 08/23/18 07:26 08/23/18 07:26 08/23/18 07:26 08/23/18 07:26 Plan Activity: no restrictions Weight Bearing Status: Full Weight Bearing Diet: low cholesterol, low salt Prescriptions: AtorvaSTATin [Lipitor] 40 mg PO QHS #30 tablet hydrALAZINE [Apresoline TAB] 50 mg PO Q8HR #90 tablet Aspirin [Aspirin BABY CHEW TAB] 81 mg PO QDAY #30 tab.chew Metoprolol [Lopressor TAB] 50 mg PO BID #60 tablet amLODIPine [Norvasc] 10 mg PO DAILY #30 tablet Lisinopril [Zestril TAB] 40 mg PO DAILY #60 tablet
[2018-08-23] MEDS: ZESTRIL PO SCH (09:27)
[2018-08-23] MEDS: LOPRESSOR PO SCH (09:27)
[2018-08-23] MEDS: SODIUM CHLORIDE FLUSH SYRINGE 10 ML IV SCH (09:28)
[2018-08-23] MEDS: NORVASC PO SCH (09:28)
[2018-08-23] MEDS: LOVENOX SUB-Q SCH (09:28)
[2018-08-23 09:29] VITALS: BP 164/105
--- NOTE | 2018-08-23 09:59 | Progress Note ---
Assessment and Plan S/p lexiscan MPI stress test yesterday which showed medium size partially reversible inferior defect, EF 56%. Pt reports resolution of chest pain. Continue with medical management. Echo reviewed - EF 55-60%, mild LVH, mild to mod MR, right heart chambers both mildly dilated, mod TR, RVSP 32mmHg. Optimize anti-hypertensive regimen - initiate cardura. Currently stable cardiac status. Pt may discharge home from cardiology standpoint. Recommend follow up in our office with Dr. Smith within 1-2 weeks of hospital discharge ([phone]). The patient has been seen in conjunction with Dr. Smith who agrees with the assessment and plan of care. - Patient Problems (1) Chest pain Current Visit: Yes Status: Resolved Qualifiers: Chest pain type: unspecified Qualified Code(s): R07.9 - Chest pain, unspecified (2) Uncontrolled hypertension Current Visit: Yes Status: Chronic (3) Abnormal ECG Current Visit: Yes Status: Acute (4) HLD (hyperlipidemia) Current Visit: Yes Status: Acute Qualifiers: Hyperlipidemia type: pure hypercholesterolemia Qualified Code(s): E78.00 - Pure hypercholesterolemia, unspecified; E78.0 - Pure hypercholesterolemia (5) H/O lymphoma Current Visit: Yes Status: Chronic (6) Abnormal stress test Current Visit: Yes Status: Acute Subjective Date of service: 08/23/18 Principal diagnosis: cp; HTN Interval history: pt resting comfortably in bed, no current cardiac complaints. Objective Last Vital Signs Temp 98.0 F 08/23/18 07:26 Pulse 66 08/23/18 09:27 Resp 18 08/23/18 07:26 BP 164/105 08/23/18 09:27 Pulse Ox 100 08/23/18 08:17 - Physical Examination General: No Apparent Distress HEENT: Positive: EOMI, Normocephaly, Mucus Membranes Moist Neck: Positive: neck supple, trachea midline Cardiac: Positive: Reg Rate and Rhythm, S1/S2 Lungs: Positive: Decreased Breath Sounds Neuro: Positive: Grossly Intact Abdomen: Positive: Soft, Active Bowel Sounds Skin: Positive: Clear. Negative: Rash Musculoskeletal: Normal Range of Motion Extremities: Present: normal. Absent: edema - Labs and Meds CBC 08/23/18 Range/Units 04:02 WBC 4.5 (4.5-11.0) K/mm3 RBC 4.55 (3.65-5.03) M/mm3 Hgb 12.9 (11.8-15.2) gm/dl Hct 39.5 (35.5-45.6) % Plt Count 166 (140-440) K/mm3 Lymph # 0.8 L (1.2-5.4) K/mm3 Person # 0.6 (0.0-0.8) K/mm3 Eos # 0.1 (0.0-0.4) K/mm3 Baso # 0.0 (0.0-0.1) K/mm3 Comprehensive Metabolic Panel 08/23/18 Range/Units 04:02 Sodium 140 (137-145) mmol/L Potassium 4.3 (3.6-5.0) mmol/L Chloride 100.9 (98-107) mmol/L Carbon Dioxide 24 (22-30) mmol/L BUN 16 (9-20) mg/dL Creatinine 1.1 (0.8-1.5) mg/dL Glucose 87 (75-100) mg/dL Calcium 8.9 (8.4-10.2) mg/dL - Imaging and Cardiology EKG: image reviewed - EKG Sinus rhythms and dysrhythmias: sinus rhythm AV and intraventricular conduction: left anterior fascicular
[2018-08-23] MEDS ORDERED: CARDURA PO SCH (10:00)
[2018-08-23] MEDS ORDERED: BABY ASPIRIN PO SCH (10:00)
== END 2018-08-23 12:30 | disposition home or self-care (01) ==
LOC: ED 23:49 → 4A 08-22 01:59
PROVIDERS: ADMIT Internal Medicine; ATTEND Internal Medicine
DX: R07.89 Other chest pain (principal); I24.9 Acute ischemic heart disease, unspecified; I10 Essential (primary) hypertension; I16.1 Hypertensive emergency; I63.9 Cerebral infarction, unspecified; E78.5 Hyperlipidemia, unspecified; R94.31 Abnormal electrocardiogram [ECG] [EKG]; Z90.89 Acquired absence of other organs; Z79.82 Long term (current) use of aspirin; Z79.899 Other long term (current) drug therapy; Z85.72 Personal history of non-Hodgkin lymphomas; Z85.858 Personal history of malignant neoplasm of other endocrine glands
CPT/HCPCS: 36415; 71045; 78452; 80048; 80061; 83036; 83880; 84484; 85025; 93005; 93010; 93017; 93306; 94760; 96372; 96374; 96375; 96376; 99291; A9270; A9502; G0378; J0360; J1650; J2270; J2785

== ENCOUNTER 2018-11-25 21:28 | Observation (INO) | payer MEDICARE ==
--- NOTE | 2018-11-25 21:39 | Emergency Department Report ---
Blank Doc - Documentation Documentation: 58-year-old male that presents with chest pain and SOB. This initial assessment/diagnostic orders/clinical plan/treatment(s) is/are subject to change based on patient's health status, clinical progression and re- assessment by fellow clinical providers in the ED. Further treatment and workup at subsequent clinical providers discretion. Patient/guardians urged not to elope from the ED as their condition may be serious if not clinically assessed and managed. Initial orders include: 1- Patient sent to MAIN ED for further evaluation and treatment 2- labs 3- EKG 4- CXR 5- event security officer was notified that patient was to be brought back [facility].
[2018-11-25 22:35] LABS: Basophils # (Auto) 0.1 K/mm3 (0.0-0.1); Basophils % (Auto) 0.7 % (0.0-1.8); Eosinophils # (Auto) 0.1 K/mm3 (0.0-0.4); Eosinophils % (Auto) 0.9 % (0.0-4.3); Hematocrit 41.3 % (35.5-45.6); Hemoglobin 13.5 gm/dl (11.8-15.2); Lymphocytes # (Auto) 1.2 K/mm3 (1.2-5.4); Lymphocytes % (Auto) 16.4 % (13.4-35.0); Mean Corpuscular HGB Conc 33 % (32-34); Mean Corpuscular Volume 85 fl (84-94); Monocytes # (Auto) 0.7 K/mm3 (0.0-0.8); Monocytes % (Auto) 9.5 % (0.0-7.3); Platelet Count 214 K/mm3 (140-440); Red Blood Count 4.85 M/mm3 (3.65-5.03); Red Cell Distribution Width 14.1 % (13.2-15.2)
[2018-11-25] MEDS ORDERED: NITROSTAT SL ONE ×2 (22:41→22:42)
--- NOTE | 2018-11-25 22:53 | Emergency Department Report ---
ED Chest Pain HPI - General Chief Complaint: Chest Pain Stated Complaint: CHEST PAIN Time Seen by Provider: 11/25/18 21:38 Source: patient Mode of arrival: Ambulatory Limitations: No Limitations - History of Present Illness Initial Comments: 58-year-old -Norwegian male presents to the emergency department from home with the complaint of some midsternal to left-sided sharp chest pain that started about 2 hours prior to presentation. It is associated with some shortness of breath. He denies any nausea, vomiting, back pain, fever or diaphoresis. He says that the pain started while driving. 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 The patient has been taking his normal home medications but sherrie heartmyla has not taken anything else for his symptoms. No recent travel or sick contacts at home. He does have a history of having a brother, who happens to be at bedside, who had an MN in his mid to late 40s. He denies any tobacco or illicit drug use. Patient had a nondiagnostic stress test here in August of this year. Patient also says that he recently saw his primary care physician at [facility] and had a workup for some chest discomfort that was negative at that time. Severity scale (0 -10): 8 - Related Data Previous Rx's Medication Instructions Recorded Last Taken Type Aspirin [Aspirin BABY CHEW TAB] 81 mg PO QDAY #30 tab.chew 08/23/18 Unknown Rx AtorvaSTATin [Lipitor] 40 mg PO QHS #30 tablet 08/23/18 Unknown Rx Lisinopril [Zestril TAB] 40 mg PO DAILY #60 tablet 08/23/18 Unknown Rx amLODIPine [Norvasc] 10 mg PO DAILY #30 tablet 08/23/18 Unknown Rx Allergies Allergy/AdvReac Type Severity Reaction Status Date / Time No Known Allergies Allergy Verified 04/08/13 09:28 Heart Score - HEART Score History: Moderately suspicious EKG: Non-specific Age: 45-65 Risk factors: 1-2 risk factors Troponin: < normal limit HEART Score: 4 - Critical Actions Critical Actions: 4-6 pts:12-16.6% risk of adverse cardiac event. Should be admitted ED Review of Systems ROS: Stated complaint: CHEST PAIN Other details as noted in HPI Comment: All other systems reviewed and negative Constitutional: denies: chills, fever Eyes: denies: eye pain, vision change ENT: denies: ear pain, throat pain Respiratory: shortness of breath. denies: cough Cardiovascular: chest pain. denies: palpitations Gastrointestinal: denies: abdominal pain, vomiting Genitourinary: denies: dysuria, discharge Musculoskeletal: denies: back pain, arthralgia Skin: denies: rash, lesions Neurological: denies: headache, weakness ED Past Medical Hx - Past Medical History Hx Hypertension: Yes Hx CVA: Yes (2001, w residual L/-sided weakness; 01/2018 w R sided wknss) Hx Congestive Heart Failure: No Hx Diabetes: No Hx Psychiatric Treatment: No Hx Asthma: No Hx COPD: No Hx HIV: No Additional medical history: chronic back pain, 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 - Surgical History Hx Internal Defibrillator: No Hx Appendectomy: Yes - Social History Smoking Status: Never Smoker Substance Use Type: None - Medications Home Medications: Home Medications Medication Instructions Recorded Confirmed Last Taken Type Aspirin [Aspirin BABY CHEW TAB] 81 mg PO QDAY #30 tab.chew 08/23/18 11/25/18 Unknown Rx AtorvaSTATin [Lipitor] 40 mg PO QHS #30 tablet 08/23/18 11/25/18 Unknown Rx Lisinopril [Zestril TAB] 40 mg PO DAILY #60 tablet 08/23/18 11/25/18 Unknown Rx amLODIPine [Norvasc] 10 mg PO DAILY #30 tablet 08/23/18 11/25/18 Unknown Rx ED Physical Exam - General Limitations: No Limitations - Other Other exam information: GENERAL: Patient appears uncomfortable and is holding his chest. HENT: Normocephalic. Atraumatic. Patient has moist mucous membranes. EYES: Extraocular motions are intact. NECK: Supple. Trachea is midline. CHEST/LUNGS: Clear to auscultation. There is no respiratory distress noted. Chest pain is not reproducible to palpation of the chest wall. HEART/CARDIOVASCULAR: Regular. There is no tachycardia. There is no murmur. ABDOMEN: Abdomen is soft, nontender. Patient has normal bowel sounds. There is no abdominal distention. SKIN: Skin is warm and dry. NEURO: The patient is awake, alert, and oriented. The patient is cooperative. The patient has no focal neurologic deficits. Normal speech. MUSCULOSKELETAL: There is no tenderness or deformity. There is no evidence of acute injury. ED Course Vital Signs 11/25/18 11/25/18 11/25/18 21:38 22:08 22:15 Temperature 98.2 F Pulse Rate 101 H 90 Respiratory 24 28 H 19 Rate Blood Pressure 208/125 O2 Sat by Pulse 99 97 Oximetry 11/25/18 22:42 Temperature Pulse Rate 91 H Respiratory Rate Blood Pressure 173/111 O2 Sat by Pulse Oximetry CASSIE score - Cassie Score Age > 65: (0) No Aspirin use within the Past 7 Days: (0) No 3 or more CAD Risk Factors: (1) Yes 2 or more Angina events in past 24 hrs: (1) Yes Known CAD with more than 50% Stenosis: (0) No Elevated Cardiac Markers: (0) No ST Deviation Greater than 0.5mm: (1) Yes CASSIE Score: 3 ED Medical Decision Making - Lab Data Result diagrams: 11/25/18 22:15 11/25/18 22:15 - EKG Data -: EKG Interpreted by Me EKG shows normal: sinus rhythm, axis (left axis deviation), intervals, QRS complexes (right bundle branch block, left anterior fascicular block), ST-T waves Rate: normal - EKG Data When compared to previous EKG there are: no significant change Interpretation: unchanged when compared t (08/22/18) - Radiology Data Radiology results: image reviewed interpreted by me: Chest x-ray does not show any acute process. There are no pleural effusions, obvious pneumonia and there is no pneumothorax. - Medical Decision Making This patient presents with midsternal to left-sided chest pain that started about 2 hours prior to presentation. He comes in clutching his chest. EKG showed right bundle branch block and left anterior fascicular block that is unchanged from previous. No morphology consistent with ST elevation MN or any dysrhythmia. Labs have thus far been unremarkable including a negative troponin and negative d-dimer. His previous stress test was nondiagnostic. The patient did get some relief from the sublingual nitroglycerin. Patient has a moderate heart score of 4 and a CASSIE score of 3. He will be admitted to the hospital for further evaluation and treatment and was accepted for admission by the hospitalist, Dr. Edward. - Differential Diagnosis MN, angina, dysrhythmia, pneumonia Critical Care Time: No Critical care attestation.: If time is entered above; I have spent that time in minutes in the direct care of this critically ill patient, excluding procedure time. ED Disposition Clinical Impression: Angina at rest, Acute chest pain, Hypertensive urgency Disposition: OP ADMIT IP TO THIS HOSP Is pt being admited?: Yes Condition: Fair Instructions: Angina (ED), Chest Pain (ED) Time of Disposition: 23:49
[2018-11-25 23:00] LABS: INR 1.07 (0.87-1.13)
[2018-11-25 23:01] LABS: Partial Thromboplastin Time 30.3 Sec. (24.2-36.6)
--- NOTE | 2018-11-25 23:04 | XRay Report ---
CHEST 2 VIEWS INDICATION: Chest Pain. COMPARISON: 03/28/2015. FINDINGS: Support devices: None. Heart: Within normal limits. Lungs/Pleura: No acute air space or interstitial disease. No significant pleural effusion. IMPRESSION: No acute findings. Signer Name: Rey Sloan MD Signed: 11/25/2018 11:00 PM Workstation Name: [id number]
[2018-11-25 23:12] LABS: BUN/Creatinine Ratio 11; Blood Urea Nitrogen 11 mg/dL (9-20); Hemolysis Index 68
[2018-11-25] MEDS ORDERED: BABY ASPIRIN PO ONE (23:27)
[2018-11-25] MEDS ORDERED: NITROSTAT SL PRN (23:53)
[2018-11-25] MEDS ORDERED: TYLENOL PO PRN (23:53)
[2018-11-25] MEDS ORDERED: DILAUDID IV PRN (23:53)
[2018-11-25] MEDS ORDERED: ZOFRAN IV PRN (23:53)
[2018-11-25] MEDS ORDERED: SODIUM CHLORIDE FLUSH SYRINGE 10 ML IV PRN ×2 (23:53)
[2018-11-25] MEDS ORDERED: PERCOCET 5/325 PO PRN (23:53)
--- NOTE | 2018-11-26 00:19 | History and Physical Report ---
History of Present Illness Date of examination: 11/25/18 Date of admission: 11/25/2018 Chief complaint: Chest pain History of present illness: 58-year-old -[place] male with history of CVAx 2 (2001 &2007)and hypertension who presents to [facility] ED with complaints of midsternal to left-sided sharp chest pain that started. Patient states that he started experiencing and non-radiating midsternal to left sided chest pain and dyspnea with exertion du ring his daily work out at the gym. He describes the pain as sharp and rates it 8/10. The pain is aggravated with activity and relieved with rest and pain medicine. Patient acknowledges daily onsumption of one can of "Ripped" energy drink to help increase energy level during workout. Review of medical records shows that patient had a negative exercise stress test and echocardiogram in August, which showed ejection fraction of 55-60%. Patient was advised to follow- up with sas programmer ([facility]) 1-2 weeks post discharge. Patient states that he did not follow up as recommended, but did have a follow-up echo done at his PCP (James) office in September, and those results were normal as well. Upon arrival patient was found to be in hypertensive urgency. Patient states that he is compliant with antihypertensive meds. Denies vomiting, cough, SOB at rest, hemoptysis, visual disturbances, gait abnormalities, fever, headache, or recent sick contact Past History Past Medical History: cancer (Lt groin lymph node s/p chemotherapy, radiation), hypertension, hyperlipidemia, stroke (2001 & 01/2018 ), other (chronic back pain) Past Surgical History: Other (removal lymph node in lt groin) Social history: (but ), lives with family (with brother), other (social drinker) Family history: no significant family history Medications and Allergies Allergies Allergy/AdvReac Type Severity Reaction Status Date / Time No Known Allergies Allergy Verified 04/08/13 09:28 Home Medications Medication Instructions Recorded Confirmed Last Taken Type Aspirin [Aspirin BABY CHEW TAB] 81 mg PO QDAY #30 tab.chew 08/23/18 11/25/18 Unknown Rx AtorvaSTATin [Lipitor] 40 mg PO QHS #30 tablet 08/23/18 11/25/18 Unknown Rx Lisinopril [Zestril TAB] 40 mg PO DAILY #60 tablet 08/23/18 11/25/18 Unknown Rx amLODIPine [Norvasc] 10 mg PO DAILY #30 tablet 08/23/18 11/25/18 Unknown Rx Active Meds: Active Medications Acetaminophen (Tylenol) 650 mg PO Q4H PRN PRN Reason: Pain MILD(1-3)/Fever >100.5/ZAMORA Amlodipine Besylate (Norvasc) 10 mg PO DAILY [facility] Aspirin (Baby Aspirin) 81 mg PO QDAY YARI Atorvastatin Calcium (Lipitor) 40 mg PO QHS YARI Docusate Sodium (Colace) 100 mg PO BID YARI Enoxaparin Sodium (Lovenox) 40 mg SUB-Q QDAY YARI Hydralazine HCl (Apresoline) 10 mg IV Q4HR PRN PRN Reason: Blood Pressure Hydromorphone HCl (Dilaudid) 0.5 mg IV Q3H PRN PRN Reason: Pain , Severe (7-10) Lisinopril (Zestril) 40 mg PO DAILY YARI Nitroglycerin (Nitrostat) 0.4 mg SL Q5M PRN PRN Reason: Chest Pain Ondansetron HCl (Zofran) 4 mg IV Q8H PRN PRN Reason: Nausea And Vomiting Oxycodone/Acetaminophen (Percocet 5/325) 1 tab PO Q6H PRN PRN Reason: Pain, Moderate (4-6) Sodium Chloride (Sodium Chloride Flush Syringe 10 Ml) 10 ml IV BID YARI Sodium Chloride (Sodium Chloride Flush Syringe 10 Ml) 10 ml IV PRN PRN PRN Reason: LINE FLUSH Sodium Chloride (Sodium Chloride Flush Syringe 10 Ml) 10 ml IV PRN PRN PRN Reason: LINE FLUSH Review of Systems All systems: negative Cardiovascular: chest pain, dyspnea on exertion, no palpitations, no syncope, no lightheadedness, no shortness of breath Exam - Physical Exam Narrative exam: Physical exam General appearance: Present: No acute distress, pleasant, well developed, well- nourished, middle-age -[place] Canadian adult male - EENT Eyes: Present: PERRL, EOM intact ENT: hearing intact, normal dentition - Neck Neck: Present: supple, normal ROM - Respiratory Respiratory effort: Non-labored Respiratory: Clear throughout - Cardiovascular Heart rate: 92 (bpm) Rhythm: Right bundle-branch block, left axis deviation Heart Sounds: Present: S1 & S2. Absent: rub, click - Extremities Extremities: no ischemia, pulses intact - Peripheral Assessment Peripheral Pulses: within normal limits - Abdominal General gastrointestinal: soft, non-tender, normal bowel sounds - Integumentary Integumentary: Present: warm, dry - Musculoskeletal Musculoskeletal: Able to move all extremities -Neurological Neurological: CN II-XII grossly intact - Psychiatric Psychiatric: Appropriate for situation, cooperative - Constitutional Vitals: Temp Pulse Resp BP Pulse Ox 98.2 F 91 H 19 173/111 97 11/25/18 21:38 11/25/18 22:42 11/25/18 22:15 11/25/18 22:42 11/25/18 22:08 Results - Labs CBC & Chem 7: 11/25/18 22:15 11/25/18 22:15 Labs: Laboratory Last Values WBC 7.4 K/mm3 (4.5-11.0) 11/25/18 22:15 RBC 4.85 M/mm3 (3.65-5.03) 11/25/18 22:15 Hgb 13.5 gm/dl (11.8-15.2) 11/25/18 22:15 Hct 41.3 % (35.5-45.6) 11/25/18 22:15 MCV 85 fl (84-94) 11/25/18 22:15 MCH 28 pg (28-32) 11/25/18 22:15 MCHC 33 % (32-34) 11/25/18 22:15 RDW 14.1 % (13.2-15.2) 11/25/18 22:15 Plt Count 214 K/mm3 (140-440) 11/25/18 22:15 Lymph % (Auto) 16.4 % (13.4-35.0) 11/25/18 22:15 [place] % (Auto) 9.5 % (0.0-7.3) H 11/25/18 22:15 Eos % (Auto) 0.9 % (0.0-4.3) 11/25/18 22:15 Baso % (Auto) 0.7 % (0.0-1.8) 11/25/18 22:15 Lymph # 1.2 K/mm3 (1.2-5.4) 11/25/18 22:15 [place] # 0.7 K/mm3 (0.0-0.8) 11/25/18 22:15 Eos # 0.1 K/mm3 (0.0-0.4) 11/25/18 22:15 Baso # 0.1 K/mm3 (0.0-0.1) 11/25/18 22:15 Seg Neutrophils % 72.5 % (40.0-70.0) H 11/25/18 22:15 Seg Neutrophils # 5.3 K/mm3 (1.8-7.7) 11/25/18 22:15 PT 13.6 Sec. (12.2-14.9) 11/25/18 22:15 INR 1.07 (0.87-1.13) 11/25/18 22:15 APTT 30.3 Sec. (24.2-36.6) 11/25/18 22:15 208.9 ng/mlDDU (0-234) 11/25/18 22:15 Sodium 140 mmol/L (137-145) 11/25/18 22:15 Potassium 4.1 mmol/L (3.6-5.0) 11/25/18 22:15 Chloride 99.5 mmol/L (98-107) 11/25/18 22:15 Carbon Dioxide 22 mmol/L (22-30) 11/25/18 22:15 23 mmol/L 11/25/18 22:15 BUN 11 mg/dL (9-20) 11/25/18 22:15 1.0 mg/dL (0.8-1.5) 11/25/18 22:15 Estimated GFR > 60 ml/min 11/25/18 22:15 11 % 11/25/18 22:15 Glucose 116 mg/dL (75-100) H 11/25/18 22:15 Calcium 10.0 mg/dL (8.4-10.2) 11/25/18 22:15 < 0.010 ng/mL (0.00-0.029) 11/25/18 22:15 - Imaging and Cardiology Imaging and Cardiology: CXR FINDINGS: Support devices: None. Heart: Within normal limits. Lungs/Pleura: No acute air space or interstitial disease. No significant pleural effusion. IMPRESSION: No acute findings. Assessment and Plan Assessment and plan: 58-year-old -[place] male with history of CVAx 2 (2001 &2007)and hypertension who presents to [facility] ED with complaints of nonradiating and midsternal to left-sided sharp chest pain and mild dyspnea on exertion that started about 2 hours prior to presentation. Acute atypical Chest Pain -Likely secondary to coronary vasospasm -Initiate chest pain protocol -Continuous telemetry monitoring -Continue supportive care -Pain mgmt -Echo (08/23/18) showed EF 55-60%, mild LVH, mild to mod MR, right heart chambers both mildly dilated, mod TR, RVSP 32mmHg -Troponin elevated x 1, will continue to trend -Cardiology Consulted Hypertensive urgency -BP on admission 208/125 -Hx Hypertension -Continue to monitor BP -Home antihypertensive meds to optimize BP -IV antihypertensive when necessary DVT PPX -on Lovenox Advance Directives: No VTE prophylaxis?: Chemical Plan of care discussed with patient/family: Yes
[2018-11-26] MEDS: APRESOLINE IV PRN ×3 (01:29→17:54)
[2018-11-26 04:33] LABS: Basophils % (Auto) 0.5 % (0.0-1.8); Eosinophils # (Auto) 0.1 K/mm3 (0.0-0.4); Eosinophils % (Auto) 1.5 % (0.0-4.3); Hematocrit 38.2 % (35.5-45.6); Hemoglobin 12.8 gm/dl (11.8-15.2); Lymphocytes # (Auto) 0.9 K/mm3 (1.2-5.4); Lymphocytes % (Auto) 15.1 % (13.4-35.0); Mean Corpuscular HGB Conc 34 % (32-34); Mean Corpuscular Volume 85 fl (84-94); Monocytes # (Auto) 0.7 K/mm3 (0.0-0.8); Monocytes % (Auto) 11.5 % (0.0-7.3); Platelet Count 185 K/mm3 (140-440); Red Cell Distribution Width 13.9 % (13.2-15.2)
[2018-11-26 04:53] LABS: BUN/Creatinine Ratio 12; Blood Urea Nitrogen 11 mg/dL (9-20); Calcium 9.4 mg/dL (8.4-10.2); Hemolysis Index 8
[2018-11-26] MEDS: LOVENOX SUB-Q SCH (09:59)
[2018-11-26] MEDS: SODIUM CHLORIDE FLUSH SYRINGE 10 ML IV SCH ×2 (09:59→21:28)
[2018-11-26] MEDS: ZESTRIL PO SCH (09:59)
[2018-11-26] MEDS ORDERED: BABY ASPIRIN PO SCH (10:00)
[2018-11-26] MEDS: COLACE PO SCH ×2 (10:00→21:26)
[2018-11-26] MEDS: NORVASC PO SCH (10:00)
[2018-11-26] MEDS ORDERED: NACL 0.9% 500 ML 500 ML IV SCH (12:00)
--- NOTE | 2018-11-26 12:50 | Consultation ---
History of Present Illness Consult date: 11/26/18 Requesting physician: NOEL MAGALLANES Consult reason: chest pain History of present illness: The pt is a 58 YO male with a past medical history of HTN, HLP, lymphoma. He has been seen by our practice on prior hospitalization but has admittedly not been compliant with OP follow up. He presented with c/o chest pain since yesterday. He states that he had just finished working out at the gym when he noted the onset of his pain. He describes the chest pain as a constant left-sided stabbing and pressure which persisted until he arrived to ED. He received nitro and then the pain resolved. He currently has no chest pain. The pain was associated with some SOB and nausea. He denies any palpitations, vomiting, diaphoresis, dizziness or syncope. Of note, pt was seen at [facility] in 08/2018 for evaluation of chest pain. He underwent lexiscan MPI stress test which showed medium size partially reversible inferior defect, EF 56%, and medical management was recommended. Echo done 08/2018 showed EF 55-60%, mild LVH, mild to mod MR, right heart chambers both mildly dilated, mod TR, RVSP 32mmHg. Past History Past Medical History: cancer (Lt groin lymph node s/p chemotherapy, radiation), hypertension, hyperlipidemia, other (chronic back pain) Past Surgical History: Other (removal lymph node in lt groin) Social history: (but ), lives with family (with brother), other (social drinker) Family history: no significant family history Medications and Allergies Allergies Allergy/AdvReac Type Severity Reaction Status Date / Time No Known Allergies Allergy Verified 04/08/13 09:28 Home Medications Medication Instructions Recorded Confirmed Last Taken Type Aspirin [Aspirin BABY CHEW TAB] 81 mg PO QDAY #30 tab.chew 08/23/18 11/25/18 Unknown Rx AtorvaSTATin [Lipitor] 40 mg PO QHS #30 tablet 08/23/18 11/25/18 Unknown Rx Lisinopril [Zestril TAB] 40 mg PO DAILY #60 tablet 08/23/18 11/25/18 Unknown Rx amLODIPine [Norvasc] 10 mg PO DAILY #30 tablet 08/23/18 11/25/18 Unknown Rx Active Meds: Active Medications Acetaminophen (Tylenol) 650 mg PO Q4H PRN PRN Reason: Pain MILD(1-3)/Fever >100.5/ZAMORA Amlodipine Besylate (Norvasc) 10 mg PO DAILY [facility] Last Admin: 11/26/18 10:00 Dose: 10 mg Documented by: Aspirin (Baby Aspirin) 81 mg PO QDAY [facility] Last Admin: 11/26/18 10:00 Dose: 81 mg Documented by: Atorvastatin Calcium (Lipitor) 40 mg PO QHS [facility] Docusate Sodium (Colace) 100 mg PO BID [facility] Last Admin: 11/26/18 10:00 Dose: 100 mg Documented by: Enoxaparin Sodium (Lovenox) 40 mg SUB-Q QDAY [facility] Last Admin: 11/26/18 09:59 Dose: 40 mg Documented by: Hydralazine HCl (Apresoline) 10 mg IV Q4H PRN PRN Reason: Blood Pressure Last Admin: 11/26/18 01:29 Dose: 10 mg Documented by: Hydromorphone HCl (Dilaudid) 0.5 mg IV Q3H PRN PRN Reason: Pain , Severe (7-10) Sodium Chloride (Nacl 0.9% 500 Ml) 500 mls @ 50 mls/hr IV DIRECT [facility] Stop: 11/26/18 21:59 Lisinopril (Zestril) 40 mg PO DAILY [facility] Last Admin: 11/26/18 09:59 Dose: 40 mg Documented by: Nitroglycerin (Nitrostat) 0.4 mg SL Q5M PRN PRN Reason: Chest Pain Ondansetron HCl (Zofran) 4 mg IV Q8H PRN PRN Reason: Nausea And Vomiting Oxycodone/Acetaminophen (Percocet 5/325) 1 tab PO Q6H PRN PRN Reason: Pain, Moderate (4-6) Sodium Chloride (Sodium Chloride Flush Syringe 10 Ml) 10 ml IV BID [facility] Last Admin: 11/26/18 09:59 Dose: 10 ml Documented by: Sodium Chloride (Sodium Chloride Flush Syringe 10 Ml) 10 ml IV PRN PRN PRN Reason: LINE FLUSH Review of Systems Constitutional: no weight loss, no weight gain, no fever, no chills, no sweats Ears, nose, mouth and throat: no ear pain, no nose pain, no sinus pressure, no sinus pain Cardiovascular: chest pain, shortness of breath, high blood pressure, no orthopnea, no palpitations, no rapid/irregular heart beat, no edema, no syncope, no lightheadedness, no dyspnea on exertion, no leg edema Respiratory: shortness of breath, no cough, no dyspnea on exertion, no congestion, no wheezing, no pain on inspiration Gastrointestinal: nausea, no abdominal pain, no vomiting, no diarrhea, no c onstipation, no change in bowel habits Genitourinary Male: no dysuria, no hematuria, no flank pain, no discharge, no urinary frequency, no urinary hesitancy Musculoskeletal: no neck stiffness, no neck pain, no shooting arm pain, no arm numbness/tingling, no low back pain, no shooting leg pain Integumentary: no rash, no pruritis, no redness, no sores, no wounds Neurological: no head injury, no paralysis, no weakness, no parathesias, no numbness, no tingling, no seizures, no syncope Psychiatric: no anxiety Endocrine: no cold intolerance, no heat intolerance Hematologic/Lymphatic: no easy bruising, no easy bleeding Allergic/Immunologic: no urticaria, no wheezing Physical Examination Vital Signs Temp Pulse Resp BP Pulse Ox 98.2 F 101 H 24 208/125 99 11/25/18 21:38 11/25/18 21:38 11/25/18 21:38 11/25/18 21:38 11/25/18 21:38 General appearance: no acute distress HEENT: Positive: PERRL, Normocephaly, Mucus Membranes Moist Neck: Positive: neck supple, trachea midline Cardiac: Positive: Reg Rate and Rhythm, S1/S2 Lungs: Positive: Decreased Breath Sounds Neuro: Positive: Grossly Intact Abdomen: Negative: Tender Skin: Negative: Rash Musculoskeletal: No Pain Extremities: Absent: edema Results 11/26/18 04:08 11/26/18 04:08 Coagulation 11/25/18 Range/Units 22:15 PT 13.6 (12.2-14.9) Sec. INR 1.07 (0.87-1.13) APTT 30.3 (24.2-36.6) Sec. CBC 11/25/18 11/26/18 Range/Units 22:15 04:08 WBC 7.4 5.9 (4.5-11.0) K/mm3 RBC 4.85 4.50 (3.65-5.03) M/mm3 Hgb 13.5 12.8 (11.8-15.2) gm/dl Hct 41.3 38.2 (35.5-45.6) % Plt Count 214 185 (140-440) K/mm3 Lymph # 1.2 0.9 L (1.2-5.4) K/mm3 [place] # 0.7 0.7 (0.0-0.8) K/mm3 Eos # 0.1 0.1 (0.0-0.4) K/mm3 Baso # 0.1 0.0 (0.0-0.1) K/mm3 Comprehensive Metabolic Panel 11/25/18 11/26/18 Range/Units 22:15 04:08 Sodium 140 137 (137-145) mmol/L Potassium 4.1 3.7 (3.6-5.0) mmol/L Chloride 99.5 98.4 (98-107) mmol/L Carbon Dioxide 22 25 (22-30) mmol/L BUN 11 11 (9-20) mg/dL Creatinine 1.0 0.9 (0.8-1.5) mg/dL Glucose 116 H 116 H (75-100) mg/dL Calcium 10.0 9.4 (8.4-10.2) mg/dL - Imaging and Cardiology Echo: report reviewed (08/2018 showed EF 55-60%, mild LVH, mild to mod MR, right heart chambers both mildly dilated, mod TR, RVSP 32mmHg. ) EKG: report reviewed, image reviewed EKG interpretations - Telemetry EKG Rhythm: Sinus Rhythm - EKG Sinus rhythms and dysrhythmias: sinus rhythm AV and intraventricular conduction: right bundle branch block, left anterior fascicular Assessment and Plan Pt presented with c/o chest pain. He was seen at [facility] in 08/2018 for evaluation of chest pain. He underwent lexiscan MPI stress test at that time which showed medium size partially reversible inferior defect, EF 56%, and medical management was recommended. Echo done 08/2018 showed EF 55-60%, mild LVH, mild to mod MR, right heart chambers both mildly dilated, mod TR, RVSP 32mmHg. He is noted to have abnormal ECG, Alana negative for AMI. Coronary angiography recommended for definitive diagnosis in setting of recurrent chest pain, abnormal stress test and abnormal ECG. Indications, potential risks and benefits of LHC reviewed with pt and he is agreeable to proceed in AM. NPO after MN. Optimize BPs. The patient has been seen in conjunction with Dr. Adrienne Bee who agrees with the assessment and plan of care. - Patient Problems (1) Acute chest pain Current Visit: Yes Status: Acute (2) Uncontrolled hypertension Current Visit: Yes Status: Chronic (3) HLD (hyperlipidemia) Current Visit: Yes Status: Acute Qualifiers: Hyperlipidemia type: pure hypercholesterolemia Qualified Code(s): E78.00 - Pure hypercholesterolemia, unspecified; E78.0 - Pure hypercholesterolemia (4) Abnormal stress test Current Visit: Yes Status: Chronic (5) Abnormal ECG Current Visit: Yes Status: Chronic
--- NOTE | 2018-11-26 16:42 | Progress Note ---
Assessment and Plan Assessment and plan: 58 year old obese -Wallisian male patient with a past medical history of CVA , hypertension , lymphoma , dyslipidemia , admitted through emergency room with chest pain .Patient underwent a stress test which was abnormal, during his previous admission in August 2018, cardiology advised medical management and follow-up upon discharge however patient was noncompliant with follow-up visits. --Persistent chest pain; History of abnormal stress test 3 months ago Cardiology evaluation noted and appreciated Possible heart cath tomorrow --Hypertensive urgency; present on admission Blood pressure is moderately controlled, continue current antihypertensives When necessary medications, closely monitor --Obesity; BMI 30.4, advised weight reduction when medically stable --Dyslipidemia; continue Lipitor and medications, low cholesterol diet --DVT prophylaxis; Lovenox Monitor closely and adjust management as needed Follow Heart Cath, if negative and stable Patient may be discharged home tomorrow Plan of care reviewed with the patient and his nurse Cardiology evaluation and recommendations noted and appreciated History Interval history: Patient seen and examined medical records reviewed Patient is admitted with left-sided chest pain Today patient continues to have intermittent chest pain Denies nausea or vomiting or diaphoresis Alert awake oriented 3 Vital signs noted Hospitalist Physical - Constitutional Vitals: Temp Pulse Resp BP Pulse Ox 97.4 F L 76 16 150/103 99 11/26/18 16:11 11/26/18 16:11 11/26/18 16:11 11/26/18 16:11 11/26/18 16:11 General appearance: Present: no acute distress, well-nourished - EENT Eyes: Present: PERRL, EOM intact - Neck Neck: Present: supple, normal ROM - Respiratory Respiratory effort: normal Respiratory: bilateral: diminished, negative: rales, rhonchi, wheezing - Cardiovascular Rhythm: regular Heart Sounds: Present: S1 & S2 - Extremities Extremities: no ischemia, No edema - Abdominal General gastrointestinal: soft, non-tender, non-distended, normal bowel sounds - Integumentary Integumentary: Present: clear, warm - Psychiatric Psychiatric: appropriate mood/affect, cooperative - Neurologic Neurologic: CNII-XII intact, moves all extremities Results - Labs CBC & Chem 7: 11/26/18 04:08 11/26/18 04:08 Labs: Laboratory Last Values WBC 5.9 K/mm3 (4.5-11.0) 11/26/18 04:08 RBC 4.50 M/mm3 (3.65-5.03) 11/26/18 04:08 Hgb 12.8 gm/dl (11.8-15.2) 11/26/18 04:08 Hct 38.2 % (35.5-45.6) 11/26/18 04:08 MCV 85 fl (84-94) 11/26/18 04:08 MCH 29 pg (28-32) 11/26/18 04:08 MCHC 34 % (32-34) 11/26/18 04:08 RDW 13.9 % (13.2-15.2) 11/26/18 04:08 Plt Count 185 K/mm3 (140-440) 11/26/18 04:08 Lymph % (Auto) 15.1 % (13.4-35.0) 11/26/18 04:08 [place] % (Auto) 11.5 % (0.0-7.3) H 11/26/18 04:08 Eos % (Auto) 1.5 % (0.0-4.3) 11/26/18 04:08 Baso % (Auto) 0.5 % (0.0-1.8) 11/26/18 04:08 Lymph # 0.9 K/mm3 (1.2-5.4) L 11/26/18 04:08 [place] # 0.7 K/mm3 (0.0-0.8) 11/26/18 04:08 Eos # 0.1 K/mm3 (0.0-0.4) 11/26/18 04:08 Baso # 0.0 K/mm3 (0.0-0.1) 11/26/18 04:08 Seg Neutrophils % 71.4 % (40.0-70.0) H 11/26/18 04:08 Seg Neutrophils # 4.2 K/mm3 (1.8-7.7) 11/26/18 04:08 PT 13.6 Sec. (12.2-14.9) 11/25/18 22:15 INR 1.07 (0.87-1.13) 11/25/18 22:15 APTT 30.3 Sec. (24.2-36.6) 11/25/18 22:15 208.9 ng/mlDDU (0-234) 11/25/18 22:15 Sodium 137 mmol/L (137-145) 11/26/18 04:08 Potassium 3.7 mmol/L (3.6-5.0) 11/26/18 04:08 Chloride 98.4 mmol/L (98-107) 11/26/18 04:08 Carbon Dioxide 25 mmol/L (22-30) 11/26/18 04:08 17 mmol/L 11/26/18 04:08 BUN 11 mg/dL (9-20) 11/26/18 04:08 0.9 mg/dL (0.8-1.5) 11/26/18 04:08 Estimated GFR > 60 ml/min 11/26/18 04:08 12 % 11/26/18 04:08 Glucose 116 mg/dL (75-100) H 11/26/18 04:08 Calcium 9.4 mg/dL (8.4-10.2) 11/26/18 04:08 < 0.010 ng/mL (0.00-0.029) 11/26/18 05:30 Active Medications - Current Medications Current Medications: Generic Name Dose Route Start Last Admin Trade Name Freq PRN Reason Stop Dose Admin Acetaminophen 650 mg 11/25/18 23:53 Tylenol PO Q4H PRN Pain MILD(1-3)/Fever >100.5/ZAMORA Amlodipine Besylate 10 mg 11/26/18 10:00 11/26/18 10:00 Norvasc PO 10 mg DAILY YARI Administration Aspirin 325 mg 11/27/18 10:00 Aspirin PO QDAY [facility] Atorvastatin Calcium 40 mg 11/26/18 22:00 Lipitor PO QHS YARI Docusate Sodium 100 mg 11/26/18 10:00 11/26/18 10:00 Colace PO 100 mg BID YARI Administration Enoxaparin Sodium 40 mg 11/26/18 10:00 11/26/18 09:59 Lovenox SUB-Q 40 mg QDAY [facility] Administration Hydromorphone HCl 0.5 mg 11/25/18 23:53 Dilaudid IV Q3H PRN Pain , Severe (7-10) Sodium Chloride 500 mls @ 50 mls/hr 11/26/18 12:00 Nacl 0.9% 500 Ml IV 11/26/18 21:59 DIRECT YARI Lisinopril 40 mg 11/26/18 10:00 11/26/18 09:59 Zestril PO 40 mg DAILY [facility] Administration Metoprolol Tartrate 50 mg 11/26/18 13:01 Lopressor PO BID [facility] Nitroglycerin 0.4 mg 11/25/18 23:53 Nitrostat SL Q5M PRN Chest Pain Ondansetron HCl 4 mg 11/25/18 23:53 Zofran IV Q8H PRN Nausea And Vomiting Oxycodone/Acetaminophen 1 tab 11/25/18 23:53 Percocet 5/325 PO Q6H PRN Pain, Moderate (4-6) Sodium Chloride 10 ml 11/26/18 10:00 11/26/18 09:59 Sodium Chloride Flush Syringe 10 Ml IV 10 ml BID YARI Administration Sodium Chloride 10 ml 11/25/18 23:53 Sodium Chloride Flush Syringe 10 Ml IV PRN PRN LINE FLUSH
[2018-11-26] MEDS ORDERED: APRESOLINE IV PRN (17:04)
[2018-11-26] MEDS: LOPRESSOR PO SCH (21:28)
[2018-11-26] MEDS ORDERED: LOPRESSOR PO SCH (22:00)
[2018-11-27 05:12] LABS: Basophils % (Auto) 0.5 % (0.0-1.8); Eosinophils # (Auto) 0.1 K/mm3 (0.0-0.4); Eosinophils % (Auto) 2.2 % (0.0-4.3); Hematocrit 39.1 % (35.5-45.6); Hemoglobin 13.1 gm/dl (11.8-15.2); Lymphocytes # (Auto) 0.9 K/mm3 (1.2-5.4); Lymphocytes % (Auto) 18.3 % (13.4-35.0); Mean Corpuscular HGB Conc 33 % (32-34); Mean Corpuscular Volume 85 fl (84-94); Monocytes # (Auto) 0.6 K/mm3 (0.0-0.8); Monocytes % (Auto) 13.1 % (0.0-7.3); Platelet Count 190 K/mm3 (140-440); Red Blood Count 4.57 M/mm3 (3.65-5.03); Red Cell Distribution Width 13.8 % (13.2-15.2)
[2018-11-27 05:20] LABS: INR 1.03 (0.87-1.13)
[2018-11-27 05:36] LABS: BUN/Creatinine Ratio 12; Blood Urea Nitrogen 12 mg/dL (9-20); Calcium 9.1 mg/dL (8.4-10.2); Hemolysis Index 10
[2018-11-27] MEDS ORDERED: ASPIRIN ONE (07:04)
[2018-11-27] MEDS ORDERED: LOPRESSOR ONE (07:09)
[2018-11-27] MEDS: LOPRESSOR PO SCH ×2 (07:10→10:40)
[2018-11-27] MEDS ORDERED: XYLOCAINE 2% INFILTRATI ONE (08:22)
[2018-11-27] MEDS ORDERED: CALAN ONE (08:22)
[2018-11-27] MEDS ORDERED: NITROGLYCERIN SYRINGE 3 ML ONE (08:22)
[2018-11-27] MEDS ORDERED: HEPARIN 10,000 UNITS/10 ML ONE (08:22)
[2018-11-27] MEDS ORDERED: HEPARIN/NS 5000 UNIT/500ML(CATH LAB) 1,000 ML IR ONE (08:22)
[2018-11-27] MEDS ORDERED: SUBLIMAZE ONE (08:23)
[2018-11-27] MEDS ORDERED: VERSED ONE (08:23)
[2018-11-27] MEDS ORDERED: NACL 0.9% 500 ML 500 ML ONE (08:40)
[2018-11-27] MEDS ORDERED: APRESOLINE IV ONE (09:30)
[2018-11-27] MEDS ORDERED: ASPIRIN PO SCH (10:00)
--- NOTE | 2018-11-27 10:18 | Cardiac Catherization Report ---
CARDIAC CATHETERIZATION INDICATION FOR PROCEDURE: The patient is a pleasant 58-year-old -[place] gentleman with multiple risk factors, abnormal stress test, referred for left heart catheterization. Risks, benefits, alternatives discussed at length prior to obtaining informed consent. PROCEDURE IN DETAIL: The patient was brought to the catheterization lab in postoperative state, prepped and draped in sterile fashion. Ismael's test in right hand was normal. An 8 mL of 2% lidocaine used to anesthetize the right wrist. A standard 6-Korean hydrophilic sheath used to engage the right radial artery via modified Seldinger technique. All exchanges performed to exchange a J-tip guidewire. JL3.5 of catheter was used to engage the left main. No dampening or ventricularization. Cineangiography performed in all projections. JR4 catheter used to cross the aortic valve under fluoroscopic guidance. Left ventriculography performed in 30 YUAN and 30 ESTONIAN projections via hand injections. Catheter flushed. Angiography performed in multiple projections. Next, a JR4 catheter was used to cross the aortic valve on fluoroscopic guidance. Left ventriculography performed in 30 YUAN and 30 ESTONIAN projections via hand injections, catheter flushed. Manual pullback performed with continuous pressure monitoring. Catheter used to engage the right coronary. No dampening or ventricularization. Cineangiography performed in all projections. Due to recurrent chest pain and unremarkable coronaries and hypertension, we did a root aortogram with a pigtail catheter and power injector in the ESTONIAN projection. Next, catheter removed from the body of wire, sheath removed. Manual pressure used to achieve hemostasis. I directly supervised the administration of moderate sedation with fentanyl and Versed from 9:00 a.m. to 9:35 a.m. DATA: Aortic pressure is 150/70, LV pressure is 150, LVP of 20 mmHg. Left ventriculography reveals normal systolic performance with estimated ejection fraction of 50-55%. No evidence of aortic stenosis. Normal LVEDP. CORONARY ANATOMY: This is a right dominant system. Right coronary is a moderate sized vessel, courses AV groove, distally bifurcates in the posterior and posterolateral branches. No discrete stenosis. Scattered luminal irregularities. Left main without significant disease, bifurcates left anterior descending and left circumflex. Left circumflex, moderate sized vessel, courses AV groove. No significant disease. LAD is a moderate sized vessel, courses anterior intergroove, wraps around the apex, no significant disease. Root aortography reveals normal contour and caliber, no evidence of aortic insufficiency, dissection or penetrating aortic ulcer. Normal great vessel anatomy. CONCLUSIONS: 1. No angiographic evidence of significant epicardial coronary disease in this right dominant system. 2. Normal left ventricular systolic performance, estimated ejection fraction of 50-55%. 3. No evidence of aortic stenosis. 4. Normal LVEDP. 5. Normal root aortography without evidence of aortic insufficiency without evidence of aortic insufficiency or penetrating aortic ulcer. RECOMMENDATIONS: Aggressive risk factor modification, blood pressure control primary and secondary prevention measures, standard radial care. Results of procedure explained to the patient at length. All questions and concerns were addressed. [facility]# [id number] ANITA/IRMA
[2018-11-27] MEDS: NORVASC PO SCH (10:31)
[2018-11-27] MEDS: ZESTRIL PO SCH (10:31)
[2018-11-27] MEDS: SODIUM CHLORIDE FLUSH SYRINGE 10 ML IV SCH (10:31)
[2018-11-27] MEDS: COLACE PO SCH (10:31)
[2018-11-27] MEDS: LOVENOX SUB-Q SCH (10:33)
--- NOTE | 2018-11-27 10:46 | Progress Note ---
Assessment and Plan S/p LHC this AM which showed normal coronaries. Currently stable cardiac status. Optimize BPs. Pt may discharge home from cardiology standpoint following completion of post cath order set. Recommend follow up in our office with Dr. Adrienne eBe within 1-2 weeks of hospital discharge ([phone]). The patient has been seen in conjunction with Dr. Adrienne Bee who agrees with the assessment and plan of care. - Patient Problems (1) Acute chest pain Current Visit: Yes Status: Resolved (2) Uncontrolled hypertension Current Visit: Yes Status: Chronic (3) HLD (hyperlipidemia) Current Visit: Yes Status: Acute Qualifiers: Hyperlipidemia type: pure hypercholesterolemia Qualified Code(s): E78.00 - Pure hypercholesterolemia, unspecified; E78.0 - Pure hypercholesterolemia (4) Abnormal stress test Current Visit: Yes Status: Chronic (5) Abnormal ECG Current Visit: Yes Status: Chronic Subjective Date of service: 11/27/18 Principal diagnosis: cp Interval history: pt for [facility]. no current complaints. Objective Last Vital Signs Temp 98.4 F 11/27/18 10:21 Pulse 65 11/27/18 10:31 Resp 18 11/27/18 10:21 BP 165/108 11/27/18 10:31 Pulse Ox 100 11/27/18 10:21 - Physical Examination General: No Apparent Distress HEENT: Positive: PERRL, Normocephaly, Mucus Membranes Moist Neck: Positive: neck supple, trachea midline Cardiac: Positive: Reg Rate and Rhythm, S1/S2 Lungs: Positive: clear to auscultation Neuro: Positive: Grossly Intact Abdomen: Negative: Tender Skin: Negative: Rash Musculoskeletal: No Pain Extremities: Absent: edema - Labs and Meds Coagulation 11/27/18 Range/Units 04:27 PT 13.2 (12.2-14.9) Sec. INR 1.03 (0.87-1.13) CBC 11/27/18 Range/Units 04:27 WBC 4.9 (4.5-11.0) K/mm3 RBC 4.57 (3.65-5.03) M/mm3 Hgb 13.1 (11.8-15.2) gm/dl Hct 39.1 (35.5-45.6) % Plt Count 190 (140-440) K/mm3 Lymph # 0.9 L (1.2-5.4) K/mm3 [place]ford # 0.6 (0.0-0.8) K/mm3 Eos # 0.1 (0.0-0.4) K/mm3 Baso # 0.0 (0.0-0.1) K/mm3 Comprehensive Metabolic Panel 11/27/18 Range/Units 04:27 Sodium 139 (137-145) mmol/L Potassium 3.7 (3.6-5.0) mmol/L Chloride 99.5 (98-107) mmol/L Carbon Dioxide 26 (22-30) mmol/L BUN 12 (9-20) mg/dL Creatinine 1.0 (0.8-1.5) mg/dL Glucose 102 H (75-100) mg/dL Calcium 9.1 (8.4-10.2) mg/dL - Imaging and Cardiology EKG: report reviewed, image reviewed Echo: report reviewed (08/2018 showed EF 55-60%, mild LVH, mild to mod MR, right heart chambers both mildly dilated, mod TR, RVSP 32mmHg. ) - Telemetry EKG Rhythm: Sinus Rhythm - EKG Sinus rhythms and dysrhythmias: sinus rhythm AV and intraventricular conduction: right bundle branch block, left anterior fascicular
--- NOTE | 2018-11-27 14:47 | Discharge Summary ---
Providers - Providers Date of Admission: 11/25/18 23:53 Date of discharge: 11/27/18 Attending physician: DINA TORRES 11/25/18 Consult to Cardiac Rehabilitation [CONS] Routine Reason For Exam: Phase I 11/25/18 23:53 Consult to Physician [CONS] Routine Comment: Consulting Provider: CHRIS VILLASEÑOR Physician Instructions: Reason For Exam: Chest Pain, malignant hypertension urgency Primary care physician: JUAN DEVRIES Hospitalization Condition: Fair Hospital course: 58 year old obese -[place]er male patient with a past medical history of CVA , hypertension , lymphoma , dyslipidemia , admitted through emergency room with chest pain .Patient underwent a stress test which was abnormal, during his previous admission in August 2018, cardiology advised medical management and follow-up upon discharge however patient was noncompliant with follow-up visits. --Persistent chest pain; History of abnormal stress test 3 months ago Cardiology evaluated,meds optimised Had negative heart cath with non obst coronaries --Hypertensive urgency; present on admission Blood pressure is moderately controlled, continue current antihypertensives When necessary medications, closely monitor --Obesity; BMI 30.4, advised weight reduction when medically stable --Dyslipidemia; continue Lipitor and medications, low cholesterol diet --DVT prophylaxis; Lovenox Exam - Constitutional Vitals: Temp Pulse Resp BP Pulse Ox 98.8 F 68 18 141/106 99 11/27/18 11:00 11/27/18 13:00 11/27/18 11:00 11/27/18 12:00 11/27/18 11:00 Plan Diet: other (cardiac diet) Additional Instructions: Advised to see Nicole-care combine operator on 12/05/18. If you have chest pain or shortness of breath ,contact MD or go to ER Follow up with: JUAN DEVRIES MD [Primary Care Provider] - 3 Days Prescriptions: Metoprolol [Lopressor TAB] 50 mg PO BID #60 tablet
[2018-11-27 15:55] VITALS: BP 163/101
== END 2018-11-27 17:00 | disposition home or self-care (01) ==
LOC: ED 21:28 → 4A 23:53
PROVIDERS: ADMIT Internal Medicine; ATTEND Internal Medicine
DX: R07.89 Other chest pain (principal); I16.0 Hypertensive urgency; R06.00 Dyspnea, unspecified; I10 Essential (primary) hypertension; E78.5 Hyperlipidemia, unspecified; R94.31 Abnormal electrocardiogram [ECG] [EKG]; R94.39 Abnormal result of other cardiovascular function study; E66.9 Obesity, unspecified; Z86.73 Personal history of transient ischemic attack (TIA), and cerebral infarction without residual deficits; Z85.89 Personal history of malignant neoplasm of other organs and systems; Z79.82 Long term (current) use of aspirin; Z90.49 Acquired absence of other specified parts of digestive tract; Z68.30 Body mass index [BMI] 30.0-30.9, adult
CPT/HCPCS: 36415; 71046; 80048; 84484; 85025; 85379; 85610; 85730; 93005; 93010; 93458; 93567; 96372; 96374; 96376; 99284; A9270; C1894; G0378; J0360; J1644; J1650; J2250; J3010; J7040; Q9967

== ENCOUNTER 2019-06-22 13:36 | Emergency (ER) | payer MEDICARE ==
[2019-06-22 13:54] VITALS: BP 150/93
--- NOTE | 2019-06-22 14:15 | Event Note ---
ED Screening Note ED Screening Note: left sided CP began this morning states sharp pain no n/v/d no fever no sob PMHx HTN no allergies non smoker normal heart cath in nov 2018 This initial assessment/diagnostic orders/clinical plan/treatment(s) is/are subject to change based on patients health status, clinical progression and re-assessment by fellow clinical providers in the ED. Further treatment and workup at subsequent clinical providers discretion. Patient/guardian urged not to elope from the ED as their condition may be serious if not clinically assessed and managed. Initial orders include: CP protocol
[2019-06-22] MEDS ORDERED: ASPIRIN 325 MG TAB PO ONE (14:16)
[2019-06-22 15:03] LABS: Hematocrit 38.8 % (35.5-45.6); Hemoglobin 12.9 gm/dl (11.8-15.2); Mean Corpuscular HGB Conc 33 % (32-34); Mean Corpuscular Volume 86 fl (84-94); Platelet Count 238 K/mm3 (140-440); Red Blood Count 4.52 M/mm3 (3.65-5.03); Red Cell Distribution Width 13.5 % (13.2-15.2)
--- NOTE | 2019-06-22 15:17 | XRay Report ---
CHEST 2 VIEWS INDICATION: Chest Pain. COMPARISON: 11/25/2018 FINDINGS: Support devices: None. Heart: Within normal limits. Lungs/pleura: No acute air space or interstitial disease. No pneumothorax. Additional findings: None. IMPRESSION: 1. No acute findings. Signer Name: Zach Ritter MD Signed: 06/22/2019 3:13 PM Workstation Name: [email or web address]
[2019-06-22 15:22] LABS: Alanine Aminotransferase 73 units/L (7-56); Albumin 4.2 g/dL (3.9-5); BUN/Creatinine Ratio 20; Blood Urea Nitrogen 28 mg/dL (9-20); Calcium 9.2 mg/dL (8.4-10.2); Hemolysis Index 7
--- NOTE | 2019-06-22 17:55 | Emergency Department Report ---
ED Chest Pain HPI - General Chief Complaint: Shoulder Injury Stated Complaint: CHEST PAIN Time Seen by Provider: 06/22/19 14:14 Source: patient Mode of arrival: Wheelchair Limitations: No Limitations - History of Present Illness Initial Comments: Patient is a 58-year-old male who presents emergency room with complaints of left-sided chest pain that began today. He describes the pain as a sharp pain. He states it almost feels like a pulled muscle and is worse with movement or stretching. he denies any n/v/d, no fever, no sob, no cough. PMHx HTN. no allergies. non smoker. normal heart cath in nov 2018 - Related Data Previous Rx's Medication Instructions Recorded Last Taken Type Aspirin [Aspirin BABY CHEW TAB] 81 mg PO QDAY #30 tab.chew 08/23/18 Unknown Rx AtorvaSTATin [Lipitor] 40 mg PO QHS #30 tablet 08/23/18 Unknown Rx amLODIPine 10 mg PO DAILY #30 tablet 08/23/18 Unknown Rx lisinopriL [Zestril TAB] 40 mg PO DAILY #60 tablet 08/23/18 Unknown Rx Metoprolol [Lopressor TAB] 50 mg PO BID #60 tablet 11/27/18 Unknown Rx Naproxen [EC-Naprosyn] 500 mg PO BID PRN #14 tablet.dr 06/22/19 Unknown Rx methOCARBAMOL [Robaxin TAB] 500 mg PO BID PRN #14 tab 06/22/19 Unknown Rx Allergies Allergy/AdvReac Type Severity Reaction Status Date / Time No Known Allergies Allergy Verified 04/08/13 09:28 Heart Score - HEART Score History: Slightly suspicious EKG: Normal Age: 45-65 Risk factors: 1-2 risk factors Troponin: < normal limit HEART Score: 2 ED Review of Systems ROS: Stated complaint: CHEST PAIN Other details as noted in HPI Comment: All other systems reviewed and negative ED Past Medical Hx - Past Medical History Previous Medical History?: Yes Hx Hypertension: Yes Hx CVA: Yes (2001, w residual L/-sided weakness; 01/2018 w R sided wknss) Hx Congestive Heart Failure: No Hx Diabetes: No Hx Psychiatric Treatment: No Hx Asthma: No Hx COPD: No Hx HIV: No Additional medical history: chronic back pain, 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 - Surgical History Past Surgical History?: Yes Hx Internal Defibrillator: No Hx Appendectomy: Yes - Social History Smoking Status: Never Smoker Substance Use Type: None - Medications Home Medications: Home Medications Medication Instructions Recorded Confirmed Last Taken Type Aspirin [Aspirin BABY CHEW TAB] 81 mg PO QDAY #30 tab.chew 08/23/18 11/25/18 Unknown Rx AtorvaSTATin [Lipitor] 40 mg PO QHS #30 tablet 08/23/18 11/25/18 Unknown Rx amLODIPine 10 mg PO DAILY #30 tablet 08/23/18 11/25/18 Unknown Rx lisinopriL [Zestril TAB] 40 mg PO DAILY #60 tablet 08/23/18 11/25/18 Unknown Rx Metoprolol [Lopressor TAB] 50 mg PO BID #60 tablet 11/27/18 Unknown Rx Naproxen [EC-Naprosyn] 500 mg PO BID PRN #14 tablet.dr 06/22/19 Unknown Rx methOCARBAMOL [Robaxin TAB] 500 mg PO BID PRN #14 tab 06/22/19 Unknown Rx ED Physical Exam - General Limitations: No Limitations General appearance: alert, in no apparent distress - Head Head exam: Present: atraumatic, normocephalic - Eye Eye exam: Present: normal appearance - ENT ENT exam: Present: mucous membranes moist - Respiratory Respiratory exam: Present: normal lung sounds bilaterally, chest wall tenderness (mild left anterior chest wall ttp, no crepitus, no deformities). Absent: respiratory distress, wheezes, rales, rhonchi, stridor, accessory muscle use, decreased breath sounds, prolonged expiratory - Cardiovascular Cardiovascular Exam: Present: regular rate, normal rhythm, normal heart sounds. Absent: systolic murmur, diastolic murmur, rubs, gallop - Extremities Exam Extremities exam: Absent: pedal edema - Neurological Exam Neurological exam: Present: alert, oriented X3 - Psychiatric Psychiatric exam: Present: normal affect, normal mood - Skin Skin exam: Present: warm, dry, intact ED Course Vital Signs 06/22/19 13:51 Temperature 98.6 F Pulse Rate 88 Respiratory 18 Rate Blood Pressure 150/93 O2 Sat by Pulse 98 Oximetry KAPIL score - Kapil Score Age > 65: (0) No Aspirin use within the Past 7 Days: (1) Yes 3 or more CAD Risk Factors: (0) No 2 or more Angina events in past 24 hrs: (0) No Known CAD with more than 50% Stenosis: (0) No Elevated Cardiac Markers: (0) No ST Deviation Greater than 0.5mm: (0) No KAPIL Score: 1 ED Medical Decision Making - Lab Data Result diagrams: 06/22/19 14:39 06/22/19 14:39 Lab Results 06/22/19 06/22/19 06/22/19 Range/Units 14:39 14:39 17:13 WBC 7.2 (4.5-11.0) K/mm3 RBC 4.52 (3.65-5.03) M/mm3 Hgb 12.9 (11.8-15.2) gm/dl Hct 38.8 (35.5-45.6) % MCV 86 (84-94) fl MCH 29 (28-32) pg MCHC 33 (32-34) % RDW 13.5 (13.2-15.2) % Plt Count 238 (140-440) K/mm3 Lymph % (Auto) Data Processing Consultant [place] % (Auto) Data Processing Consultant Eos % (Auto) Data Processing Consultant Baso % (Auto) Data Processing Consultant Lymph # Data Processing Consultant [place] # Data Processing Consultant Eos # Data Processing Consultant Baso # Data Processing Consultant Seg Neutrophils % Data Processing Consultant Seg Neutrophils # Data Processing Consultant Sodium 140 (137-145) mmol/L Potassium 4.6 (3.6-5.0) mmol/L Chloride 104.7 (98-107) mmol/L Carbon Dioxide 20 L (22-30) mmol/L Anion Gap 20 mmol/L BUN 28 H (9-20) mg/dL Creatinine 1.4 (0.8-1.5) mg/dL Estimated GFR > 60 ml/min BUN/Creatinine Ratio 20 % Glucose 97 (75-100) mg/dL Calcium 9.2 (8.4-10.2) mg/dL Total Bilirubin 0.30 (0.1-1.2) mg/dL AST 74 H (5-40) units/L ALT 73 H (7-56) units/L Alkaline Phosphatase 57 (35-129) units/L Troponin T < 0.010 < 0.010 (0.00-0.029) ng/mL NT-Pro-B Natriuret Pep 16.79 (0-900) pg/mL Total Protein 6.6 (6.3-8.2) g/dL Albumin 4.2 (3.9-5) g/dL Albumin/Globulin Ratio 1.8 % - EKG Data EKG shows normal: sinus rhythm, intervals Rate: normal - EKG Data When compared to previous EKG there are: no significant change 06/22/19 17:59 LAD RBBB non specific T wave inversion in V1, V2, V3 no STEMI comparison 11/2018: no significant change - Radiology Data Radiology results: report reviewed CHEST 2 VIEWS INDICATION: Chest Pain. COMPARISON: 11/25/2018 FINDINGS: Support devices: None. Heart: Within normal limits. Lungs/pleura: No acute air space or interstitial disease. No pneumothorax. Additional findings: None. IMPRESSION: 1. No acute findings. Signer Name: Zach Ritter MD Signed: 06/22/2019 3:13 PM Workstation Name: [id number] Transcribed By: DEMARCUS Dictated By: Zach Ritter MD Electronically Authenticated By: Zach Ritter MD Signed Date/Time: 06/22/191512 DD/ 11 TD/TT: - Medical Decision Making Patient is a 58-year-old male who presents emergency room with complaints of left-sided chest pain that began today. He describes the pain as a sharp pain. He states it almost feels like a pulled muscle and is worse with movement or stretching. he denies any n/v/d, no fever, no sob, no cough. PMHx HTN. no allergies. non smoker. normal heart cath in nov 2018. VSS. labs with mildly elevated AST and ALT, normal alk phos, normal bilirubin, pt is not having abd pain or n/v/d. trop is negative x 2. Cr and GFR are stable, BUN with non specific elevation. EKG with no change, no STEMI. CXR: 1. No acute findings. pt states he took aspirin today, did not give aspirin in ED. on exam: left anterior chest wall ttp. heart score is 2, KAPIL is 1, low risk for cardiac event. very low risk for PE based on wells criteria. pt put on chest pain pathway, pts information faxed to [facility] for close cardiology follow up. pt also referred to GI regarding elevated ALT/AST. pt given robaxin and naproxen for his chest wall pain. advised pt please take medication as prescribed as needed. Do not drive or operate machinery while taking muscle relaxer. May use ice pack, heating pad, rest, Epson salt bath. Follow-up with a buttonholer. Follow-up with a primary care doctor. follow up with a GI doctor regarding the elevation in your liver tests, avoid alcohol use and tylenol use. Return to the emergency room for any new or worsening symptoms. - Differential Diagnosis ACS, costochrondritis, PUD, GERD, PE, PTX, anemia, anxiety, AAA Critical care attestation.: If time is entered above; I have spent that time in minutes in the direct care of this critically ill patient, excluding procedure time. ED Disposition Clinical Impression: Atypical chest pain, Elevated LFTs Disposition: TO HOME OR SELFCARE Is pt being admited?: No Does the pt Need Aspirin: No Condition: Stable Instructions: Chest Pain (ED) Additional Instructions: Please take medication as prescribed as needed. Do not drive or operate machinery while taking muscle relaxer. May use ice pack, heating pad, rest, Epson salt bath. Follow-up with a buttonholer. Follow-up with a primary care doctor. follow up with a GI doctor regarding the elevation in your liver tests, avoid alcohol use and tylenol use. Return to the emergency room for any new or worsening symptoms. Prescriptions: Naproxen [EC-Naprosyn] 500 mg PO BID PRN #14 tablet.dr PRN Reason: pain methOCARBAMOL [Robaxin TAB] 500 mg PO BID PRN #14 tab PRN Reason: Muscle Spasm Referrals: [facility] [Provider Group] - 3-5 Days KALEN ASH MD [Staff Physician] - 3-5 Days [facility] [Provider Group] - 3-5 Days Time of Disposition: 18:01 Print Language: ETHIOPIAN
== END 2019-06-22 18:15 | disposition home or self-care (01) ==
LOC: ED 13:36
DX: R07.89 Other chest pain (principal); R79.89 Other specified abnormal findings of blood chemistry; I10 Essential (primary) hypertension; G89.29 Other chronic pain; I25.2 Old myocardial infarction; Z90.49 Acquired absence of other specified parts of digestive tract; Z79.899 Other long term (current) drug therapy
CPT/HCPCS: 36415; 71046; 80053; 83880; 84484; 85025; 93005; 93010

== ENCOUNTER 2020-02-14 14:14 | Emergency (ER) | payer MEDICARE ==
[2020-02-14 14:20] VITALS: BP 152/92
[2020-02-14] MEDS ORDERED: KETOROLAC 30 MG/1 ML INJ IM ONE (14:55)
--- NOTE | 2020-02-14 15:00 | Emergency Department Report ---
ED Back Pain/Injury HPI - General Chief Complaint: Back Pain/Injury Stated Complaint: LOWER BACK PAINS Time Seen by Provider: 02/14/20 14:45 Source: patient Limitations: No Limitations - History of Present Illness Initial Comments: The patient was evaluated in the emergency department for symptoms described in the history of present illness. He/she was evaluated in the context of the global COVID-19 pandemic, which necessitated consideration that the patient might be at risk for infection with the virus that causes COVID-19. Institutional protocols and algorithms that pertain to the evaluation of patients at risk for COVID-19 are in a state of rapid change based on information released by regulatory bodies including the CDC and federal and state organizations. These policies and algorithms were followed during the patient's care in the emergency department. Please note that these policies, procedures and recommendations changed on a rapid basis. 59-year-old -[place] male presents to the emergency room for acute on chronic lower back pain since this morning. Patient denies any injuries. Patient has a past medical history of lymphoma with a history of radiation and chemo. Patient reports he is only taking Lipitor and amlodipine. Patient denies any chest pain shortness of breathing no radiation to either lower extremities no urinary or bowel incontinence. MD Complaint: back pain -: This afternoon Similar Symptoms Previously: Yes Severity scale (0 -10): 9 Quality: sharp, aching Consistency: constant Improves With: immobilization Worsens With: movement Associated Symptoms: denies other symptoms - Related Data Previous Rx's Medication Instructions Recorded Last Taken Type Aspirin [Aspirin BABY CHEW TAB] 81 mg PO QDAY #30 tab.chew 08/23/18 Unknown Rx AtorvaSTATin [Lipitor] 40 mg PO QHS #30 tablet 08/23/18 Unknown Rx amLODIPine 10 mg PO DAILY #30 tablet 08/23/18 Unknown Rx lisinopriL [Zestril TAB] 40 mg PO DAILY #60 tablet 08/23/18 Unknown Rx Metoprolol [Lopressor TAB] 50 mg PO BID #60 tablet 11/27/18 Unknown Rx Naproxen [EC-Naprosyn] 500 mg PO BID PRN #14 tablet. 06/22/19 Unknown Rx methOCARBAMOL [Robaxin TAB] 500 mg PO BID PRN #14 tab 06/22/19 Unknown Rx Meloxicam [Mobic] 7.5 mg PO QDAY #30 tablet 02/14/20 Unknown Rx Allergies Allergy/AdvReac Type Severity Reaction Status Date / Time No Known Allergies Allergy Verified 04/08/13 09:28 ED Review of Systems ROS: Stated complaint: LOWER BACK PAINS Other details as noted in HPI Comment: All other systems reviewed and negative ED Past Medical Hx - Past Medical History Hx Hypertension: Yes Hx CVA: Yes (2001, w residual L/-sided weakness; 01/2018 w R sided wknss) Hx Congestive Heart Failure: No Hx Diabetes: No Hx Psychiatric Treatment: No Hx Asthma: No Hx COPD: No Hx HIV: No Additional medical history: chronic back pain, 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 - Surgical History Hx Internal Defibrillator: No Hx Appendectomy: Yes - Social History Smoking Status: Never Smoker - Medications Home Medications: Home Medications Medication Instructions Recorded Confirmed Last Taken Type Aspirin [Aspirin BABY CHEW TAB] 81 mg PO QDAY #30 tab.chew 08/23/18 11/25/18 Unknown Rx AtorvaSTATin [Lipitor] 40 mg PO QHS #30 tablet 08/23/18 11/25/18 Unknown Rx amLODIPine 10 mg PO DAILY #30 tablet 08/23/18 11/25/18 Unknown Rx lisinopriL [Zestril TAB] 40 mg PO DAILY #60 tablet 08/23/18 11/25/18 Unknown Rx Metoprolol [Lopressor TAB] 50 mg PO BID #60 tablet 11/27/18 Unknown Rx Naproxen [EC-Naprosyn] 500 mg PO BID PRN #14 tablet.dr 06/22/19 Unknown Rx methOCARBAMOL [Robaxin TAB] 500 mg PO BID PRN #14 tab 06/22/19 Unknown Rx Meloxicam [Mobic] 7.5 mg PO QDAY #30 tablet 02/14/20 Unknown Rx ED Physical Exam - General Limitations: No Limitations General appearance: alert, in no apparent distress - Head Head exam: Present: atraumatic, normocephalic - Eye Eye exam: Present: normal appearance - Neck Neck exam: Present: full ROM - Respiratory Respiratory exam: Present: normal lung sounds bilaterally - Cardiovascular Cardiovascular Exam: Present: regular rate, normal rhythm. Absent: systolic murmur, diastolic murmur, rubs, gallop - Back Exam Back exam: Present: full ROM, muscle spasm, vertebral tenderness - Neurological Exam Neurological exam: Present: alert, oriented X3, normal gait - Psychiatric Psychiatric exam: Present: normal affect, normal mood - Skin Skin exam: Present: warm, dry, intact, normal color. Absent: rash ED Course Vital Signs 02/14/20 02/14/20 02/14/20 14:18 15:10 15:40 Temperature 98.0 F Pulse Rate 86 Respiratory 14 18 18 Rate Blood Pressure 152/92 O2 Sat by Pulse 97 Oximetry ED Medical Decision Making - Radiology Data Radiology results: report reviewed Patient: SHAJI BEEBE MR#: [id number] : 1960 Acct:[id number] Age/Sex: 59 / M ADM Date: 02/14/20 Loc: ED Attending Dr: Ordering Physician: YIFAN GASPAR Date of Service: 02/14/20 Procedure(s): XR spine lumbosacral 2-3V Accession Number(s): [id number] cc: YIFAN GASPAR Fluoro Time In Minutes: XR spine lumbosacral 2-3V INDICATION / CLINICAL INFORMATION: Acute back pain on chronic back pain. COMPARISON: None available. FINDINGS: VERTEBRAE: No acute fracture. Minimal degenerative retrolisthesis of L5 on S1. DISC SPACES / FACET JOINTS:Moderate disc space height loss at L5-S1, moderate at the levels. There is moderate lower lumbar facet arthropathy. PARASPINAL SOFT TISSUES:No significant abnormality. ADDITIONAL FINDINGS: None. IMPRESSION: Moderate lower lumbar spondylosis. No acute process. Signer Name: Tania Rosen MD Signed: 02/14/2020 3:38 PM Workstation Name: [id number] Transcribed By: YARIEL Dictated By: TANIA CATES MD Electronically Authenticated By: TANIA CATES MD Signed Date/Time: 02/14/20 153 DD/ 37 TD/TT: - Medical Decision Making 59-year-old -[place] male presents to the emergency room for acute on chronic lower back pain since this morning. Patient denies any injuries. Patient has a past medical history of lymphoma with a history of radiation and chemo. Patient reports he is only taking Lipitor and amlodipine. Patient denies any chest pain shortness of breathing no radiation to either lower extremities no urinary or bowel incontinence. X-ray lumbar sacral. Patient has a history of chemoradiation but just like to rule out any compression fracture. Patient will be given Toradol injection for pain management. Critical care attestation.: If time is entered above; I have spent that time in minutes in the direct care of this critically ill patient, excluding procedure time. ED Disposition Clinical Impression: Spondylosis of lumbar spine Disposition: DC- TO HOME OR SELFCARE Is pt being admited?: No Does the pt Need Aspirin: No Condition: Stable Instructions: Spondylolysis Rehab-[facility] Additional Instructions: Back x-ray shows you have arthritis. I have referred you to our back specialist you can follow-up. Take the pain medication as needed. Prescriptions: Meloxicam [Mobic] 7.5 mg PO QDAY #30 tablet Referrals: TOBI DURAND MD [Primary Care Provider] - 3-5 Days [facility] [Provider Group] - 3-5 Days
--- NOTE | 2020-02-14 16:43 | XRay Report ---
XR spine lumbosacral 2-3V INDICATION / CLINICAL INFORMATION: Acute back pain on chronic back pain. COMPARISON: None available. FINDINGS: VERTEBRAE: No acute fracture. Minimal degenerative retrolisthesis of L5 on S1. DISC SPACES / FACET JOINTS:Moderate disc space height loss at L5-S1, moderate at the levels. There is moderate lower lumbar facet arthropathy. PARASPINAL SOFT TISSUES:No significant abnormality. ADDITIONAL FINDINGS: None. IMPRESSION: Moderate lower lumbar spondylosis. No acute process. Signer Name: Teddy Rosen MD Signed: 02/14/2020 3:38 PM Workstation Name: [id number]
== END 2020-02-14 17:23 | disposition home or self-care (01) ==
LOC: ED 14:14
DX: M47.896 Other spondylosis, lumbar region (principal); I10 Essential (primary) hypertension; Z86.73 Personal history of transient ischemic attack (TIA), and cerebral infarction without residual deficits; Z90.49 Acquired absence of other specified parts of digestive tract; Z79.899 Other long term (current) drug therapy
CPT/HCPCS: 72100; 96372; 99283; J1885

== ENCOUNTER 2020-04-10 22:48 | Emergency (ER) | payer MEDICARE | END 2020-04-11 01:30 | disposition left against medical advice (07) | LOC: ED 22:48 | DX: S61.219A Laceration without foreign body of unspecified finger without damage to nail, initial encounter (principal); Z53.21 Procedure and treatment not carried out due to patient leaving prior to being seen by health care provider; X58.XXXA Exposure to other specified factors, initial encounter; Y93.89 Activity, other specified; Y92.89 Other specified places as the place of occurrence of the external cause; Y99.8 Other external cause status ==